=== PATIENT | male | born 1945 | race Caucasian/White ===

== ENCOUNTER 2017-04-02 17:49 | Inpatient (IN) ==
[2017-04-02] MEDS ORDERED: ONDANSETRON 4 MG/2 ML VIAL IV STA (18:10)
[2017-04-02] MEDS ORDERED: methylPREDNISolone SOD SUC 125 MG/2 ML VIAL IV STA (18:10)
[2017-04-02] MEDS ORDERED: FUROSEMIDE 100 MG/10 ML VIAL IV STA (18:10)
[2017-04-02] MEDS ORDERED: DOXYCYCLINE HYCLATE INJ 100 MG in SODIUM CHLORIDE 0.9% 100 ML IV STA (18:10)
[2017-04-02] MEDS ORDERED: ALBUTEROL/IPRATROPIUM 3 ML NEB RESP TX STA (18:10)
--- NOTE | 2017-04-02 18:15 | EKG Report ---
Stationary ECG Study [facility] ER Test Date: 04/02/2017 6:03:15 PM Pat Name: MARRY ELKINS Department: Room: Gender: M Wellness Program Coordinator: XIMENA Bethea : 1945 Requested by: Devon Jones Order Number: [id number] Reading MD: CELESTINA DICKSON Intervals [place] Rate: 93 P: 59 MS: 174 QRS: -49 QRSD: 96 T: 88 QT: 335 QTc: 386 Interpretive Statements SINUS RHYTHM LEFT ANTERIOR FASCICULAR BLOCK Possible ANTERIOR MYOCARDIAL INFARCTION, OF INDETERMINATE AGE INFERIOR MYOCARDIAL INFARCTION, PROBABLY OLD Electronically Signed On 04-03-17 08:52:45 CDT by CELESTINA DICKSON [email or web address]
--- NOTE | 2017-04-02 18:18 | Emergency Department Note ---
Arrival - Arrival Chief Complaint: Fever Stated Complaint: CHEST PAINS ED Nursing Triage Note: Pt c/o fever, cough, CP, SOB, chills, back pain, strong odor to his urine, and weakness since last . Mode of Arrival: Wheelchair Limitations: No Limitations Source: Patient Time Seen by Provider: 04/02/17 18:09 - History of Present Illness HPI Narrative: This 71-year-old white male presents with 5 days of temperatures spiking to 101 , body aches, weakness, cough with discolored sputum, shortness of breath with exertion, precordial chest pain, and increasing pedal edema. The patient denies a history of nausea, vomiting, diarrhea and in regards to chest pain, has had a negative cardiac workup per Dr. Dean. Of note, he has had multiple tick bites over the last several weeks the most recent being in the last week itself. Although he has weakness he denies any rheumalgias but does have what appears as a rash or bites of the lower extremities bilaterally. Currently he is uncomfortable but in no acute medical distress. Onset (ago): day(s) (This patient presents 5 days post onset of symptoms.) Allergies/Adverse Reactions: Allergies Allergy/AdvReac Type Severity Reaction Status Date / Time codeine Allergy Severe SHORTNESS Verified 03/30/15 06:20 OF BREATH ibuprofen Allergy Severe RASH Verified 03/30/15 06:20 BACTRIM DS Allergy Severe RASH Uncoded 03/30/15 06:20 Home Medications: Home Medications Medication Instructions Recorded Confirmed Type Omeprazole [Prilosec] 40 mg PO DAILY W/SUPPER 03/09/15 04/02/17 History glyBURIDE [Glyburide] 5 mg PO BID 03/09/15 04/02/17 History Aspirin EC Tab 81 mg PO BEDTIME 04/02/17 04/02/17 History Clopidogrel [Plavix] 75 mg PO DAILY W/SUPPER 04/02/17 04/02/17 History Insulin Aspart Prot/Asp 70/30 10 unit SUBCUT BEDTIME 04/02/17 04/02/17 History [NovoLOG Mix 70/30] Levothyroxine Tab [Synthroid Tab] 150 mcg PO DAILY@0700 04/02/17 04/02/17 History Lovastatin 10 mg PO BEDTIME 04/02/17 04/02/17 History NIFEdipine XL TAB [Procardia Xl] 30 mg PO BEDTIME 04/02/17 04/02/17 History Spironolactone [Aldactone] 25 mg PO QAM 04/02/17 04/02/17 History Review of System - Review of System 12 point system: reviewed and no additional remarkable complaints except as stated - Review of System Respiratory: Present: as per HPI Cardiovascular: Present: as per HPI Gastrointestinal: Present: as per HPI Musculoskeletal: Present: as per HPI Medical,Surgical,& Family Hx - Medical History Cardio: History of: CAD, Hypertension, [place] (X 4), Cardiovascular Problems (6 stents) Psychological: History of: Anxiety Disorders, Depression Neurology: No history of: Seizures HEENT: History of: Ear Problem (HARD OF HEARING), Eye Problem (CATARACTS) Endocrine: History of: Diabetes Mellitus (NIDDM), Thyroid Disorder (CANCER) Rheumatology: History of;: Rheumatoid Arthritis, Rheumatological Problems Respiratory: History of: COPD (ASBESTOES), Respiratory Problems Genitourinary: History of: Kidney Stones, Prostate Problems (CANCER SEED IMPLANTS) Gastrointestinal: History of: GERD, Hemorrhoids, Polyps, GI Problems (HIATAL HERNA) Musculoskeletal: History of: Back/Neck Problems, Musculoskeletal Problems Hematology: History of: Bleeding Problems (bloody urine) Other: History of: Cancer (PROSTATE THYROID) - Surgical History Cardiac Surgeries: Sugical HX of: Cardiac Catheterization Thoracic Surgeries: Surgical HX of;: Lithotripsy HEENT Surgeries: Surgical HX of: Eye Surgery (CATARACTS), Thyroid Surgery ( REMOVAL) Abdominal Surgeries: Surgical HX of: Abdominal Surgery, Colonoscopy, EGD, Hernia Repair (X3) Reproductive Surgeries: Surgical HX of;: Genitourinary Surgery, Prostate Surgery (SEED IMPLANTS) Orthopedic Surgeries: Surgical HX of;: Orthopedic Surgery (LEFT KNEE REPLACE), Total Knee Replacement (LEFT KNEE) - Family History Family History: Reports;: Family Cancer (DAD), Family Heart Disease (MOM) - Social History Smoking Status: Former smoker Exam Physical Examination: GENERAL: Elderly white male in no acute distress. HEENT: Normocephalic. No trauma. Moist mucous membranes. EOMI. PERRLA. Eyes slightly bloodshot ENT NML NECK: Supple. No adenopathy. CARDIAC: Regular. No murmurs. Heart rate 93 CHEST: Scattered expiratory ronchi. No respiratory distress. O2 sat 95% ABDOMEN: Soft. Nontender. Active bowel sounds. EXTREMITIES: No trauma. Normal ROM. No pedal edema. SKIN: No diaphoresis. Bites both ankles NEURO: Alert. Neuro intact no focal deficits. Vital Signs: Vital Signs Temperature 101.1 F H 04/02/17 18:57 Pulse Rate 101 H 04/02/17 18:57 Respiratory Rate 20 04/02/17 19:27 Blood Pressure 139/85 04/02/17 18:57 O2 Sat by Pulse Oximetry 100 04/02/17 18:30 Course - Reevaluation(s) Reevaluation #1: Discussed with patient the need for hospitalization for treatment of pneumonia. - Consultations Consultation #1: Discussed with hospitalist service who will admit for further evaluation treatment. Results - Labs CBC & BMP: 04/02/17 18:37 04/02/17 18:37 Labs: I reviewed laboratory results and noted the gross normality. - Impressions EKG: Sinus rhythm at 93 with normal DE interval and QRS duration. 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 Nonspecific ST changes observed but no acute injury pattern noted. - Diagnostic Findings Procedure: Chest x-ray: image reviewed by me, report reviewed by me (Left lower lobe pneumonia) Disposition Clinical Impression: Left lower lobe pneumonia, tick bites Case discussed with: patient, patient's family Disposition: Still a Patient Condition: Guarded Time of Disposition: 19:43
[2017-04-02 18:45] LABS: Basophils # 0.1 10*3/uL (0.0-0.2); Basophils % 0.5 % (0.0-0.8); Eosinophils # 0.2 10*3/uL (0.0-0.87); Eosinophils % 1.8 % (0.00-10.9); Hematocrit 42.4 VOL% (42.0-52.0); Immature Granulocytes % 0.3 %; Immature Granulocytes Absolute 0.03 #; Lymphocytes # 1.3 10*3/uL (1.4-4.0); Lymphocytes % 13.1 % (21.2-54.2); Mean Corpuscular Hemoglobin 30 PG (27-34); Mean Corpuscular Volume 90.6 FL (87-102); Mean Platelet Volume 10.1 FL (9.6-12.0); Monocytes # 1.2 10*3/uL (0.11-0.8); Monocytes % 11.9 % (1.7-12.7); Neutrophils % 72.4 % (38.7-73.9); Platelet Count 246 T/CUMM (130-400); Red Blood Count 4.68 MC/CUMM (3.8-5.5); Red Cell Distribution Width 14.2 % (9.3-17.3); White Blood Count 9.7 T/CUMM (4-12)
--- NOTE | 2017-04-02 18:46 | XRay Report ---
History: Shortness of breath Date: 04/02/2017 Study: Chest x-ray AP portable Comparison exam: February 17, 2016 The cardiac silhouette is not enlarged. The mediastinal contours are stable. The pulmonary vasculature is not engorged. There is some mild increased patchy density over the left lung base. The lungs are otherwise clear. There is no gross pleural effusion. Osseous structures are unchanged. Surgical clips overlie the thoracic inlet. Impression: Mild left basilar infiltrate suggestive of pneumonia. Otherwise unchanged PROCEDURE INTERPRETED AT [facility] DEPARTMENT OF RADIOLOGY Final Report Signed by: Dr. Salome Nichols
[2017-04-02 19:00] LABS: PT Patient Result 10.8 SECS; Partial Thromboplastin Time 28.7 SECS (0-40)
[2017-04-02] MEDS ORDERED: DOXYCYCLINE HYCLATE 100 MG VIAL ONE (19:04)
[2017-04-02] MEDS ORDERED: methylPREDNISolone SOD SUC 125 MG/2 ML VIAL ONE (19:04)
[2017-04-02] MEDS ORDERED: ONDANSETRON 4 MG/2 ML VIAL ONE (19:04)
[2017-04-02] MEDS ORDERED: FUROSEMIDE 20 MG/2 ML VIAL ONE (19:04)
[2017-04-02] MEDS ORDERED: FUROSEMIDE 40 MG/4 ML VIAL ONE (19:04)
[2017-04-02 19:23] LABS: Alanine Aminotransferase 40 U/L (16-61); Albumin 3.3 G/DL (3.4-5.0); Alkaline Phosphatase 62 U/L (45-117); Aspartate Amino Transferase 48 U/L (0-37); Blood Urea Nitrogen 16 MG/DL (7-18); Calcium 8.7 MG/DL (8.5-10.1); Glucose 159 MG/DL (74-106); Osmolality,Calculated 280.5 MOS/KG (273-304); Potassium 3.7 MMOL/L (3.5-5.1); Sodium 139 MMOL/L (136-145); Total Protein 7.8 G/DL (6.4-8.3); Troponin I Only < 0.015 NG/ML (0.00-0.045)
[2017-04-02] MEDS ORDERED: DEXTROSE 50% 25 GM/50 ML VIAL IV PRN ×2 (20:26)
[2017-04-02] MEDS ORDERED: ONDANSETRON 4 MG/2 ML VIAL IV PRN (20:26)
[2017-04-02] MEDS ORDERED: ZALEPLON 5 MG CAPSULE PO PRN (20:26)
[2017-04-02] MEDS ORDERED: GLUCAGON 1 MG VIAL IM PRN ×2 (20:26)
[2017-04-02] MEDS ORDERED: ACETAMINOPHEN 325 MG TABLET PO PRN (20:26)
[2017-04-02] MEDS ORDERED: ENOXAPARIN 30 MG/0.3 ML SYRINGE SUBCUT SCH (20:30)
--- NOTE | 2017-04-02 20:39 | Hospitalist History & Physical ---
Assessment and Plan (1) Pneumonia Status: Acute Assessment and plan: Gentleman with evidence of community-acquired pneumonia that is been present for several days. Associated with temperature spikes greater than 101. Broad- spectrum antibiotics with Zosyn and Levaquin. Sputum cultures. Gerard mejía Current Visit: Yes Qualifiers: Pneumonia type: due to unspecified organism (2) Diabetes 1.5, managed as type 2 Status: Chronic Assessment and plan: Continue with sliding scale insulin. Continue home medications. Current Visit: Yes (3) Fever Status: Acute Assessment and plan: Temperature spike due to pneumonia. Also has a history of tick bites has started on doxycycline. Pending blood cultures pending urine cultures. Broad-spectrum antibiotics. Current Visit: Yes (4) Obesity Status: Chronic Current Visit: Yes Qualifiers: Obesity type: due to excess calories (5) COPD (chronic obstructive pulmonary disease) Status: Chronic Current Visit: Yes Qualifiers: COPD type: COPD with acute lower respiratory infection Qualified Code(s): J44.0 - Chronic obstructive pulmonary disease with acute lower respiratory infection (6) Coronary artery disease Status: Chronic Assessment and plan: Patient has been followed by Dr. Dean. Has a history of 6 stents placed. Last stent was not quite a year ago. Last saw Dr. Dean within the last few weeks and had a cardiac workup at that time which was unremarkable. EKG done today shows no EKG changes or ST elevation. Current Visit: Yes Qualifiers: Coronary Disease-Associated Artery/Lesion type: [place] artery (7) Arthritis Status: Chronic Current Visit: Yes (8) History of thyroid cancer Status: Resolved Assessment and plan: The patient has had surgery Current Visit: Yes (9) History of prostate cancer Status: Acute Current Visit: Yes (10) Hernia of anterior abdominal wall Status: Chronic Assessment and plan: Patient has had surgery for hernia repair Current Visit: Yes History of Present Illness Chief complaint: Shortness of breath, fever, cough History of present illness: Mr. Espana is a 71 year old male with multiple medical problems to include coronary artery disease with stent placement diabetes, hypertension, nephrolithiasis, COPD, history of skin and thyroid cancer presented with a 3-4 day history of productive cough of bloody thick phlegm that continue to progress over the last several days. 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 Dean for fatigue and chest discomfort. His workup was unremarkable at that time. However today symptoms continued to worsen where patient states it felt like there was "kick in his chest" associated with fever, chills and fatigue. The fever of 102 is what prompted patient's family to bring him to the emergency room. The family honestly thought that these symptoms were due to his history of tick bite however his symptoms are much more intense today according to patient. While evaluated in the emergency room patient was found to have a left lower lobe pneumonia temperature greater than 101. His initial troponins were unremarkable and EKG showed no ST elevations. He has been sat 94 % on nasal cannula. Hemodynamically has been stable. He is empirically started on doxycycline. His main discomfort is midsternal discomfort and back pain. Broad-spectrum antibiotics. Sputum culture. Follow chest x-ray in a.m. Half-normal saline at 100 cc an hour. Nasal cannula. DuoNeb's. GI prophylaxis. DVT prophylaxis. Initial troponins unremarkable. Greene as needed pain. Solu-Medrol 60 mg IV every 8. Continue doxycycline 100 mg twice daily. Home Medications Medication Instructions Recorded Confirmed Type Omeprazole [Prilosec] 40 mg PO DAILY W/SUPPER 03/09/15 04/02/17 History glyBURIDE [Glyburide] 5 mg PO BID 03/09/15 04/02/17 History Aspirin EC Tab 81 mg PO BEDTIME 04/02/17 04/02/17 History Clopidogrel [Plavix] 75 mg PO DAILY W/SUPPER 04/02/17 04/02/17 History Insulin Aspart Prot/Asp 70/30 10 unit SUBCUT BEDTIME 04/02/17 04/02/17 History [NovoLOG Mix 70/30] Levothyroxine Tab [Synthroid Tab] 150 mcg PO DAILY@0700 04/02/17 04/02/17 History Lovastatin 10 mg PO BEDTIME 04/02/17 04/02/17 History NIFEdipine XL TAB [Procardia Xl] 30 mg PO BEDTIME 04/02/17 04/02/17 History Spironolactone [Aldactone] 25 mg PO QAM 04/02/17 04/02/17 History Allergies Allergy/AdvReac Type Severity Reaction Status Date / Time codeine Allergy Severe SHORTNESS Verified 03/30/15 06:20 OF BREATH ibuprofen Allergy Severe RASH Verified 03/30/15 06:20 BACTRIM DS Allergy Severe RASH Uncoded 03/30/15 06:20 Medical,Surgical,& Family Hx - Medical History Cardio: History of: CAD, Hypertension, [place] (X 4), Cardiovascular Problems (6 stents) Psychological: History of: Anxiety Disorders, Depression Neurology: No history of: Seizures HEENT: History of: Ear Problem (HARD OF HEARING), Eye Problem (CATARACTS) Endocrine: History of: Diabetes Mellitus (NIDDM), Thyroid Disorder (CANCER) Rheumatology: History of;: Rheumatoid Arthritis, Rheumatological Problems Respiratory: History of: COPD (ASBESTOES), Respiratory Problems Genitourinary: History of: Kidney Stones, Prostate Problems (CANCER SEED IMPLANTS) Gastrointestinal: History of: GERD, Hemorrhoids, Polyps, GI Problems (HIATAL HERNA) Musculoskeletal: History of: Back/Neck Problems, Musculoskeletal Problems Hematology: History of: Bleeding Problems (bloody urine) Other: History of: Cancer (PROSTATE THYROID) - Surgical History Cardiac Surgeries: Sugical HX of: Cardiac Catheterization Thoracic Surgeries: Surgical HX of;: Lithotripsy HEENT Surgeries: Surgical HX of: Eye Surgery (CATARACTS), Thyroid Surgery ( REMOVAL) Abdominal Surgeries: Surgical HX of: Abdominal Surgery, Colonoscopy, EGD, Hernia Repair (X3) Reproductive Surgeries: Surgical HX of;: Genitourinary Surgery, Prostate Surgery (SEED IMPLANTS) Orthopedic Surgeries: Surgical HX of;: Orthopedic Surgery (LEFT KNEE REPLACE), Total Knee Replacement (LEFT KNEE) - Family History Family History: Reports;: Family Cancer (DAD), Family Heart Disease (MOM) - Social History Smoking Status: Former smoker Exam - Constitutional Vitals: Period Temp Pulse Resp BP Sys/Fu Pulse Ox Last 24 Hr 101.0 F-101.1 F 95-101 18-20 139-139/85-85 95-100 Pleasant gentleman mild discomfort due to back pain. Also complains of epigastric pain. Patient appears his stated age. Cardiovascular is regular rate. Lungs Rales noted in the left lower lung and laterally Abdomen is soft obese positive bowel sounds Lower extremities no evidence of edema. Plan nerves II through XII grossly intact. General appearance: over weight - Head Head exam: Present: normal inspection - Eye Eye exam: Present: EOMI Pupils: Present: [place] - ENT ENT exam: Present: normal exam - Neck Neck exam: Present: normal inspection - Respiratory Respiratory exam: Present: rales (Noted over the left lung base anteriorly and laterally). Absent: chest wall tenderness, decreased breath sounds, stridor, wheezes - Cardiovascular Cardiovascular exam: Present: regular rate and rhythm - GI/Abdominal GI/Abdominal exam: Present: normal bowel sounds, distended (Soft no guarding or rebound healed surgical scar at the umbilicus) - Extremities Exam Extremities exam: Present: normal inspection, full ROM - Neurological Exam Neurological exam: Present: alert, oriented X3, CN II-XII intact - Psychiatric Psychiatric exam: Present: normal affect, normal mood - Skin Skin exam: Present: normal color, dry. Absent: cyanosis Results - Labs CBC & BMP: 04/02/17 18:37 04/02/17 18:37 - EKG EKG results: interpreted by MIHAELA, no acute changes - Diagnostic Findings Procedure: Chest x-ray: report reviewed by me (Evidence of left basilar infiltrate suggestive of pneumonia by report.)
[2017-04-02] MEDS ORDERED: LEVOFLOXACIN INJ 750 MG in PREMIX 1 EACH IV SCH (21:00)
[2017-04-02] MEDS ORDERED: INSULIN ASPART PROTAMINE/ASPART 70/30 100 UNIT/ML SUBCUT SCH (21:00)
[2017-04-02] MEDS: SODIUM CHLORIDE 0.45% 1,000 ML IV SCH (21:57)
[2017-04-02] MEDS: PIPERACILLIN/TAZOBACTAM 3,375 MG in SODIUM CHLORIDE 0.9% 100 ML IV SCH (22:00)
[2017-04-02] MEDS: glyBURIDE 5 MG TABLET PO SCH (22:01)
[2017-04-02] MEDS: DOXYCYCLINE HYCLATE 100 MG CAPSULE PO SCH (22:02)
[2017-04-02] MEDS: LOVASTATIN 20 MG TABLET PO SCH (22:02)
[2017-04-02] MEDS: ASPIRIN EC 81 MG TABLET PO SCH (22:03)
[2017-04-03] MEDS: ALBUTEROL/IPRATROPIUM 3 ML NEB RESP TX SCH ×4 (00:05→19:17)
[2017-04-03] MEDS: methylPREDNISolone SOD SUC 40 MG/1 ML VIAL IV SCH ×3 (03:59→18:25)
[2017-04-03 04:07] LABS: Troponin I Only < 0.015 NG/ML (0.00-0.045)
[2017-04-03] MEDS: PIPERACILLIN/TAZOBACTAM 3,375 MG in SODIUM CHLORIDE 0.9% 100 ML IV SCH ×4 (04:20→23:06)
[2017-04-03 05:24] LABS: Basophils % 0.1 % (0.0-0.8); Hematocrit 41.8 VOL% (42.0-52.0); Hemoglobin 13.7 GM/DL (14.0-18.0); Immature Granulocytes % 0.5 %; Immature Granulocytes Absolute 0.04 #; Lymphocytes # 0.6 10*3/uL (1.4-4.0); Lymphocytes % 7.7 % (21.2-54.2); Mean Corpuscular HGB Conc 32.8 GM/DL (32-36); Mean Corpuscular Hemoglobin 30 PG (27-34); Mean Corpuscular Volume 90.1 FL (87-102); Mean Platelet Volume 10.6 FL (9.6-12.0); Monocytes # 0.1 10*3/uL (0.11-0.8); Monocytes % 1.3 % (1.7-12.7); Neutrophils # 7.2 10*3/uL (1.4-7.4); Neutrophils % 90.4 % (38.7-73.9); Platelet Count 244 T/CUMM (130-400); Red Blood Count 4.64 MC/CUMM (3.8-5.5); Red Cell Distribution Width 14.1 % (9.3-17.3)
[2017-04-03 05:54] LABS: Calcium 8.5 MG/DL (8.5-10.1); Osmolality,Calculated 288.1 MOS/KG (273-304); Potassium 4.1 MMOL/L (3.5-5.1)
[2017-04-03 05:59] LABS: Troponin I Only < 0.015 NG/ML (0.00-0.045)
[2017-04-03 06:32] LABS: Band Neutrophils 4 % (0-10); Eosinophils 1 % (0-10); Hypochromasia Slight; Lymphocytes 2 % (20-55); Platelet Estimate Adequate; Segmented Neutrophils 89 % (50-85); Total Cells Counted 100
[2017-04-03] MEDS: SODIUM CHLORIDE 0.45% 1,000 ML IV SCH (06:54)
--- NOTE | 2017-04-03 07:57 | XRay Report ---
Exam: XR chest 2V Date: 04/03/2017 4:00 AM Indication: Shortness of breath Comparison: Technical: PA lateral Findings: Patchy infiltrate in the left base. The heart is at upper limits of normal. Mild scarring in the perihilar regions. Previous surgical changes in the left thyroid bed. Mediastinum is intact. Degenerative change present thoracic spine with anterolateral marginal osteophytes. Impression: 1. Patchy interstitial infiltrate left base with underlying component of fibrotic scarring and mild COPD change PROCEDURE INTERPRETED AT [facility] DEPARTMENT OF RADIOLOGY Final Report Signed by: Dr. Mickey Aragon
--- NOTE | 2017-04-03 08:01 | Ultrasound Report ---
Exam: US venous doppler LE BI Indication: Shortness of breath Date: 04/03/2017 4:00 AM Findings: Grayscale color flow duplex/Doppler imaging and spectral analysis waveform imaging was performed with real-time ultrasound with image stored and captured. The right common femoral, superficial femoral, popliteal saphenous veins are patent with normal augmentation and compression. There is no evidence of popliteal or Laguerre's cyst. Normal wave form analysis present. Normal color flow The left common femoral, superficial femoral, popliteal saphenous veins are patent with normal augmentation and compression. There is no evidence of popliteal or Laguerre's cyst. Normal wave form analysis present. Normal color flow Impression: 1. No DVT PROCEDURE INTERPRETED AT [facility] DEPARTMENT OF RADIOLOGY Final Report Signed by: Dr. Mickey Aragon
[2017-04-03] MEDS: PANTOPRAZOLE 40 MG TABLET PO SCH (09:34)
[2017-04-03] MEDS: INSULIN REGULAR 100 UNIT/ML SUBCUT SCH ×3 (09:34→20:34)
[2017-04-03] MEDS: glyBURIDE 5 MG TABLET PO SCH ×2 (09:34→19:30)
[2017-04-03] MEDS: LEVOTHYROXINE 150 MCG TABLET PO SCH (09:34)
[2017-04-03] MEDS: SPIRONOLACTONE 25 MG TABLET PO SCH (09:34)
[2017-04-03] MEDS: DOXYCYCLINE HYCLATE 100 MG CAPSULE PO SCH ×2 (09:34→20:35)
--- NOTE | 2017-04-03 12:33 | Hospitalist Progress Note ---
Assessment and Plan (1) Pneumonia Status: Acute Assessment and plan: Continue Zosyn, white count remains normal Current Visit: Yes Qualifiers: Pneumonia type: due to unspecified organism (2) Diabetes 1.5, managed as type 2 Status: Chronic Assessment and plan: Blood sugars running too high. Will get hemoglobin A1c and increase 7030-20 units twice a day. Continue insulin sliding scale Current Visit: Yes (3) COPD (chronic obstructive pulmonary disease) Status: Chronic Assessment and plan: Continue steroids, duo nebs every 6 hours and antibiotic Current Visit: Yes Qualifiers: COPD type: COPD with acute lower respiratory infection Qualified Code(s): J44.0 - Chronic obstructive pulmonary disease with acute lower respiratory infection (4) History of thyroid cancer Status: Resolved Current Visit: Yes (5) History of prostate cancer Status: Acute Current Visit: Yes (6) Tick bite Status: Acute Assessment and plan: will send off titer for lyme, erlichosis and RMSF, cont doxycycline for now Current Visit: Yes Hospitalist: Subjective Interval history: Patient is still feeling pretty rough today. He is also coughing up sputum. He feels better on the oxygen however. Patient has a history of thyroid cancer. Exam - Constitutional Vitals: Period Temp Pulse Resp BP Sys/Fu Pulse Ox Last 24 Hr 96.9 F-101.1 F 70-101 16-20 130-149/61-85 93-100 Exam: Heart Rate-[tachy] Lungs-[diminished and tight GI-[+bs soft, NT] Ext-[no edema] Neuro [Motor 5/5], [alert and oriented times 3] psych [normal mood and affect] General [no acute distress] Results - Labs CBC & BMP: 04/03/17 04:50 04/03/17 04:50 Lab Results: I have reviewed the past 24 hour labs - Diagnostic Findings Procedure: Chest x-ray: report reviewed by me (LLL infiltrate ), Ultrasound: report reviewed by me (no dvt) Quality Measures - Stroke Symptom Onset Unknown: No
[2017-04-03] MEDS ORDERED: NON-FORMULARY MEDICATION (Omeprazole [Prilosec] 40 MG) PO SCH (17:00)
[2017-04-03] MEDS: CLOPIDOGREL 75 MG TABLET PO SCH (17:26)
[2017-04-03] MEDS: INSULIN ASPART PROTAMINE/ASPART 70/30 100 UNIT/ML SUBCUT SCH (20:34)
[2017-04-03] MEDS: ENOXAPARIN 40 MG/0.4 ML SYRINGE SUBCUT SCH (20:35)
[2017-04-03] MEDS: LOVASTATIN 20 MG TABLET PO SCH (20:36)
[2017-04-03] MEDS: ASPIRIN EC 81 MG TABLET PO SCH (20:36)
[2017-04-04] MEDS: ALBUTEROL/IPRATROPIUM 3 ML NEB RESP TX SCH ×4 (00:03→19:10)
[2017-04-04] MEDS: methylPREDNISolone SOD SUC 40 MG/1 ML VIAL IV SCH ×2 (03:18→14:32)
[2017-04-04] MEDS: PIPERACILLIN/TAZOBACTAM 3,375 MG in SODIUM CHLORIDE 0.9% 100 ML IV SCH ×4 (03:19→23:00)
[2017-04-04] MEDS: SODIUM CHLORIDE 0.45% 1,000 ML IV SCH ×3 (06:25→16:18)
[2017-04-04] MEDS: LEVOTHYROXINE 150 MCG TABLET PO SCH (06:29)
[2017-04-04] MEDS: DOXYCYCLINE HYCLATE 100 MG CAPSULE PO SCH ×2 (08:40→20:31)
[2017-04-04] MEDS: PANTOPRAZOLE 40 MG TABLET PO SCH (08:40)
[2017-04-04] MEDS: SPIRONOLACTONE 25 MG TABLET PO SCH (08:40)
[2017-04-04] MEDS: INSULIN ASPART PROTAMINE/ASPART 70/30 100 UNIT/ML SUBCUT SCH ×2 (08:40→20:31)
[2017-04-04] MEDS: glyBURIDE 5 MG TABLET PO SCH ×2 (08:40→20:32)
[2017-04-04] MEDS: INSULIN REGULAR 100 UNIT/ML SUBCUT SCH ×2 (08:41→17:00)
--- NOTE | 2017-04-04 09:07 | Hospitalist Progress Note ---
Assessment and Plan (1) Pneumonia Status: Acute Assessment and plan: Continue Zosyn, duonebs and steroids Current Visit: Yes Qualifiers: Pneumonia type: due to unspecified organism (2) Diabetes 1.5, managed as type 2 Status: Chronic Assessment and plan: Blood sugars a little better today. Hemoglobin A1c is 7.9. Increase 70/30 to 27 units twice daily for better control. Current Visit: Yes (3) COPD (chronic obstructive pulmonary disease) Status: Chronic Assessment and plan: Continue steroids, duo nebs every 6 hours and antibiotic Current Visit: Yes Qualifiers: COPD type: COPD with acute lower respiratory infection Qualified Code(s): J44.0 - Chronic obstructive pulmonary disease with acute lower respiratory infection (4) History of thyroid cancer Status: Resolved Current Visit: Yes (5) History of prostate cancer Status: Acute Current Visit: Yes (6) Tick bite Status: Acute Assessment and plan: await lyme, erlichosis and RMSF, cont doxycycline for now Current Visit: Yes Hospitalist: Subjective Interval history: is at bedside. Patient has been under a lot of stress. He has got a lot of anxiety. I will treat him with as needed Ativan. He is a little constipated and will treat that with Dulcolax. He also did not sleep last night even though he had a sleeping pill he did not note that he could ask for it. We will schedule it at nighttime. Very sweet man. Exam - Constitutional Vitals: Period Temp Pulse Resp BP Sys/Fu Pulse Ox Last 24 Hr 96.9 F-97.6 F 75-104 18-20 130-148/75-88 91-98 Exam: Heart Rate-[RRR] Lungs-[diminished GI-[+bs soft, NT] Ext-[no edema] Neuro [Motor 5/5], [alert and oriented times 3] psych [anxious mood and affect] General [no acute distress] Results - Labs CBC & BMP: 04/03/17 04:50 04/03/17 04:50 Lab Results: I have reviewed the past 24 hour labs Labs: Sputum culture growing normal eva, blood cultures 2 negative no growth Quality Measures - Stroke Symptom Onset Unknown: No
[2017-04-04] MEDS: BISACODYL 5 MG TABLET PO SCH (09:44)
[2017-04-04] MEDS: LORazepam 0.5 MG TABLET PO PRN ×2 (09:44→20:32)
[2017-04-04] MEDS: CLOPIDOGREL 75 MG TABLET PO SCH (17:00)
[2017-04-04] MEDS: ZALEPLON 5 MG CAPSULE PO SCH (20:31)
[2017-04-04] MEDS: LOVASTATIN 20 MG TABLET PO SCH (20:31)
[2017-04-04] MEDS: ENOXAPARIN 40 MG/0.4 ML SYRINGE SUBCUT SCH (20:31)
[2017-04-04] MEDS: ASPIRIN EC 81 MG TABLET PO SCH (20:32)
[2017-04-05] MEDS: ALBUTEROL/IPRATROPIUM 3 ML NEB RESP TX SCH ×4 (00:40→19:17)
[2017-04-05] MEDS: SODIUM CHLORIDE 0.45% 1,000 ML IV SCH ×2 (03:00→10:52)
[2017-04-05] MEDS: methylPREDNISolone SOD SUC 40 MG/1 ML VIAL IV SCH ×2 (03:01→15:04)
[2017-04-05] MEDS: PIPERACILLIN/TAZOBACTAM 3,375 MG in SODIUM CHLORIDE 0.9% 100 ML IV SCH ×3 (03:51→20:41)
[2017-04-05] MEDS: LEVOTHYROXINE 150 MCG TABLET PO SCH (06:02)
[2017-04-05] MEDS: INSULIN REGULAR 100 UNIT/ML SUBCUT SCH ×2 (07:42→16:58)
[2017-04-05] MEDS: INSULIN ASPART PROTAMINE/ASPART 70/30 100 UNIT/ML SUBCUT SCH ×2 (08:41→17:57)
[2017-04-05] MEDS: BISACODYL 5 MG TABLET PO SCH (08:42)
[2017-04-05] MEDS: DOXYCYCLINE HYCLATE 100 MG CAPSULE PO SCH ×2 (08:43→20:40)
[2017-04-05] MEDS: glyBURIDE 5 MG TABLET PO SCH ×2 (08:43→20:40)
[2017-04-05] MEDS: SPIRONOLACTONE 25 MG TABLET PO SCH (08:43)
[2017-04-05] MEDS: PANTOPRAZOLE 40 MG TABLET PO SCH (08:43)
--- NOTE | 2017-04-05 14:34 | Hospitalist Progress Note ---
Assessment and Plan (1) Pneumonia Status: Acute Assessment and plan: Continue Zosyn, duonebs and steroids, repeat cxr in am Current Visit: Yes Qualifiers: Pneumonia type: due to unspecified organism (2) Diabetes 1.5, managed as type 2 Status: Chronic Assessment and plan: Increase 70/30 to 35 units twice daily for better control. Current Visit: Yes (3) COPD (chronic obstructive pulmonary disease) Status: Chronic Assessment and plan: improving, cont steroids, duo nebs and antibiotic Current Visit: Yes Qualifiers: COPD type: COPD with acute lower respiratory infection Qualified Code(s): J44.0 - Chronic obstructive pulmonary disease with acute lower respiratory infection (4) History of thyroid cancer Status: Resolved Current Visit: Yes (5) History of prostate cancer Status: Acute Current Visit: Yes (6) Tick bite Status: Acute Assessment and plan: lyme, erlichosis and RMSF pending, cont doxycycline for now Current Visit: Yes Hospitalist: Subjective Interval history: feeling better today. Will d/c oxygen and get him to move around more today, repeat cxr in am Exam - Constitutional Vitals: Period Temp Pulse Resp BP Sys/Fu Pulse Ox Last 24 Hr 97.4 F-98.1 F 75-93 18-20 132-145/68-83 86-98 Exam: Heart Rate-[RRR] Lungs-[clear GI-[+bs soft, NT] Ext-[no edema] Neuro [Motor 5/5], [alert and oriented times 3] psych [pleasant mood and affect] General [no acute distress] Results - Labs CBC & BMP: 04/03/17 04:50 04/03/17 04:50 Lab Results: I have reviewed the past 24 hour labs Labs: Blood cultures 2 negative no growth, sputum culture normal eva Quality Measures - Stroke Symptom Onset Unknown: No
[2017-04-05] MEDS: CLOPIDOGREL 75 MG TABLET PO SCH (16:05)
--- NOTE | 2017-04-05 17:07 | Sleep Medicine Consult ---
Assessment and Plan (1) Obstructive sleep apnea Status: Acute Assessment and plan: This patient has severe obstructive sleep apnea with severe O2 desaturation. We will place him on AutoPap with supplemental oxygen. We need to get his records from [facility] and [facility] and see what needs to be done to get him compliant and make sure that he stays compliant. We need to follow him closely in clinic to make sure he continues to work on achieving compliance and comfort with CPAP therapy. Current Visit: Yes (2) Diabetes 1.5, managed as type 2 Status: Chronic Assessment and plan: The prevalence rate for obstructive sleep apnea in patients with type 2 diabetes can be as high as 86%. Those patients with moderate to severe obstructive sleep apnea are at a greater risk for diabetic nephropathy and neuropathy. Compliance with CPAP therapy for these patients can lead to improvement in glycemic control and improvement in insulin sensitivity. Current Visit: Yes History of Present Illness Chief complaint: Obstructive sleep apnea History of present illness: Mr. Espana is a 71 year old male known to me from a prior history of obstructive sleep apnea. He was originally diagnosed in 2005 with an AHI of over 48 with O2 desaturation to his low is 72%. He was prescribed CPAP but was not treated. He was reevaluated in 2015 by split study and found to have severe obstructive sleep apnea with an AHI 55.1 with O2 desats to 63%. He had difficult control sleep apnea and has been on auto CPAP. He definitely was improved with CPAP therapy though he did not have complete control. He has had a difficult time with compliance. He had a greater than 90% usage right on his last clinic follow-up in August of last year but his compliance rate for over 4 hours was only 56%. His AHI on CPAP therapy with supplemental oxygen was 12.1. He actually required a re-titration study after that but never returned for that study. Home Medications Medication Instructions Recorded Confirmed Type Omeprazole [Prilosec] 40 mg PO DAILY W/SUPPER 03/09/15 04/02/17 History glyBURIDE [Glyburide] 5 mg PO BID 03/09/15 04/02/17 History Aspirin EC Tab 81 mg PO BEDTIME 04/02/17 04/02/17 History Clopidogrel [Plavix] 75 mg PO DAILY W/SUPPER 04/02/17 04/02/17 History Insulin Aspart Prot/Asp 70/30 10 unit SUBCUT BEDTIME 04/02/17 04/02/17 History [NovoLOG Mix 70/30] Levothyroxine Tab [Synthroid Tab] 150 mcg PO DAILY@0700 04/02/17 04/02/17 History Lovastatin 10 mg PO BEDTIME 04/02/17 04/02/17 History NIFEdipine XL TAB [Procardia Xl] 30 mg PO BEDTIME 04/02/17 04/02/17 History Spironolactone [Aldactone] 25 mg PO QAM 04/02/17 04/02/17 History Allergies Allergy/AdvReac Type Severity Reaction Status Date / Time codeine Allergy Severe SHORTNESS Verified 03/30/15 06:20 OF BREATH ibuprofen Allergy Severe RASH Verified 03/30/15 06:20 BACTRIM DS Allergy Severe RASH Uncoded 03/30/15 06:20 Review of systems: Unremarkable from sleep medicine standpoint. Exam (Pulmonay) H&P - Constitutional Vitals: Period Temp Pulse Resp BP Sys/Fu Pulse Ox Last 24 Hr 97.4 F-98.1 F 75-93 18-20 132-145/68-83 86-98 Exam: He is alert and responsive in no acute distress. Pupils equal round reactive to light and accommodation. Extraocular movements intact. Oropharynx with a class IV Mallampati exam. Neck supple without adenopathy or thyromegaly. No supraclavicular adenopathy is noted. Chest with symmetrical breath sounds without focal wheeze or rhonchi. Cardiac exam reveals a regular rhythm without murmur or gallop. Abdomen soft nontender without palpable hepatosplenomegaly or mass. Extremities are without clubbing, cyanosis, or edema. Neurologically , he is grossly intact. He moves all extremities with good strength and answers questions appropriately. Medical,Surgical,& Family Hx - Medical History Cardio: History of: CAD, Hypertension, OH (X 4), Cardiovascular Problems (6 stents) Psychological: History of: Anxiety Disorders, Depression Neurology: No history of: Seizures HEENT: History of: Ear Problem (HARD OF HEARING), Eye Problem (CATARACTS) Endocrine: History of: Diabetes Mellitus (NIDDM), Thyroid Disorder (CANCER) Rheumatology: History of;: Rheumatoid Arthritis, Rheumatological Problems Respiratory: History of: COPD (ASBESTOES), Respiratory Problems Genitourinary: History of: Kidney Stones, Prostate Problems (CANCER SEED IMPLANTS) Gastrointestinal: History of: GERD, Hemorrhoids, Polyps, GI Problems (HIATAL HERNA) Musculoskeletal: History of: Back/Neck Problems, Musculoskeletal Problems Hematology: History of: Bleeding Problems (bloody urine) Other: History of: Cancer (PROSTATE THYROID) - Surgical History Cardiac Surgeries: Sugical HX of: Cardiac Catheterization Thoracic Surgeries: Surgical HX of;: Lithotripsy HEENT Surgeries: Surgical HX of: Eye Surgery (CATARACTS), Thyroid Surgery ( REMOVAL) Abdominal Surgeries: Surgical HX of: Abdominal Surgery, Colonoscopy, EGD, Hernia Repair (X3) Reproductive Surgeries: Surgical HX of;: Genitourinary Surgery, Prostate Surgery (SEED IMPLANTS) Orthopedic Surgeries: Surgical HX of;: Orthopedic Surgery (LEFT KNEE REPLACE), Total Knee Replacement (LEFT KNEE) - Family History Family History: Reports;: Family Cancer (DAD), Family Heart Disease (MOM) - Social History Smoking Status: Former smoker Results - Labs CBC & BMP: 04/03/17 04:50 04/03/17 04:50 Lab Results: I have reviewed the past 24 hour labs Quality Measures - Stroke Symptom Onset Unknown: No
[2017-04-05] MEDS: LOVASTATIN 20 MG TABLET PO SCH (20:40)
[2017-04-05] MEDS: ZALEPLON 5 MG CAPSULE PO SCH (20:40)
[2017-04-05] MEDS: ASPIRIN EC 81 MG TABLET PO SCH (20:40)
[2017-04-05] MEDS: ENOXAPARIN 40 MG/0.4 ML SYRINGE SUBCUT SCH (20:41)
[2017-04-06] MEDS: ALBUTEROL/IPRATROPIUM 3 ML NEB RESP TX SCH ×2 (00:14→07:29)
[2017-04-06] MEDS: methylPREDNISolone SOD SUC 40 MG/1 ML VIAL IV SCH (04:18)
[2017-04-06] MEDS: PIPERACILLIN/TAZOBACTAM 3,375 MG in SODIUM CHLORIDE 0.9% 100 ML IV SCH ×2 (04:20→12:40)
[2017-04-06] MEDS: LEVOTHYROXINE 150 MCG TABLET PO SCH (06:27)
--- NOTE | 2017-04-06 07:50 | XRay Report ---
XR chest 2V Indication: Shortness of breath. Comparison: Chest x-ray 04/03/2017 Technique: PA and lateral chest x-ray was performed. Findings: Partial clearing of airspace disease within the lateral aspect of the mid to lower left lung is demonstrated. Minimal interstitial stranding remains present and scattered nodular airspace opacities remain present. Chest is otherwise stable and demonstrates no significant abnormality. Impression: 1. Interval partial clearing of the left lower lung. Continued follow-up is recommended to ensure resolution. 04/06/2017 7:47 AM PROCEDURE INTERPRETED AT [facility] DEPARTMENT OF RADIOLOGY Final Report Signed by: Dr. Feliciano Chapin
[2017-04-06] MEDS: INSULIN ASPART PROTAMINE/ASPART 70/30 100 UNIT/ML SUBCUT SCH (08:11)
[2017-04-06] MEDS: INSULIN REGULAR 100 UNIT/ML SUBCUT SCH (09:08)
[2017-04-06] MEDS: DOXYCYCLINE HYCLATE 100 MG CAPSULE PO SCH (09:12)
[2017-04-06] MEDS: glyBURIDE 5 MG TABLET PO SCH (09:13)
[2017-04-06] MEDS: SPIRONOLACTONE 25 MG TABLET PO SCH (09:13)
[2017-04-06] MEDS: BISACODYL 5 MG TABLET PO SCH (09:13)
[2017-04-06] MEDS: PANTOPRAZOLE 40 MG TABLET PO SCH (09:13)
--- NOTE | 2017-04-06 10:31 | Discharge Summary ---
<Gray Cummins - Last Filed: 04/06/17 11:07> Hospital Course - Hospital Course Hospital Course: Mr. Espana is a 71-year-old male with multiple medical problems which include coronary artery disease with stent placement, diabetes, hypertension, nephrolithiasis, COPD, history of skin and thyroid cancer who presented to the [place] ED on 04/02/2017 with complaints of a 3-4 day history of productive cough with bloody thick phlegm. He was admitted to the hospital medicine service with pneumonia. He was started on broad-spectrum antibiotics with Zosyn and Levaquin. Sputum cultures were collected. Duo nebs were ordered as well. Patient did have a fever on admission due to his pneumonia. Blood cultures were ordered. Both sputum and blood cultures were negative at 48 and 72 hours. Patient also reported a history of tick bite and was started on doxycycline. A titer for Lyme, ehrlichiosis and [place] spotted fever was sent off but are pending. Patient was continued on doxycycline. Patient's diabetes was managed with sliding scale insulin and 70/30 twice daily for better control. Hemoglobin A1c is 7.9. Sleep medicine was consulted for PATRICIA with decreasing O2 saturations. He was placed on AutoPap with supplemental oxygen with outpatient follow-up upon discharge. Patient unable to tolerate cpap machine and is not wearing his cpap at home. He has alot of anxiety but cannot take ativan and fall asleep without his cpap. I informed him and his . He has been started on lexapro in addition to ativan. At this time the patient has reached maximum benefit from hospitalization and is stable for discharge. He is scheduled to follow-up with Dr. Man in 1 week and his PCP, Dr. Choudhary, in 2 weeks. Patient will be discharged on augmentin and doxycycline. Specialty Discharge - Follow Up or Referrals Follow up with: Donna Man MD [Physician] - 1 Week (They will call you with appointment. if you do not hear from them today, call the office in am at [phone] to check with them when it will be.) Mahesh Choudhary MD [Primary Care Provider] - 2 Weeks Discharge Plan - Discharge Data Disposition: Home Health Service - Discharge Medications New Albuterol Sulfate [Proair HFA] 2 puff INH Q4H PRN #1 inhaler PRN Reason: Shortness Of Breath/Wheezing Amoxicillin/Clav Tab [Augmentin Tab] 875 mg PO BID #20 tablet Doxycycline Hyclate Cap [Vibramycin Cap] 100 mg PO BID #10 capsule Escitalopram [Lexapro] 10 mg PO DAILY #30 tablet LORazepam TAB [Ativan Tab] 0.25 mg PO TID PRN #20 tablet PRN Reason: Anxiety Continue glyBURIDE [Glyburide] 5 mg PO BID Omeprazole [Prilosec] 40 mg PO DAILY W/SUPPER Levothyroxine Tab [Synthroid Tab] 150 mcg PO DAILY@0700 Spironolactone [Aldactone] 25 mg PO QAM Lovastatin 10 mg PO BEDTIME Clopidogrel [Plavix] 75 mg PO DAILY W/SUPPER Aspirin EC Tab 81 mg PO BEDTIME NIFEdipine XL TAB [Procardia Xl] 30 mg PO BEDTIME Changed Insulin Aspart Prot/Asp 70/30 [NovoLOG Mix 70/30] 35 unit SUBCUT BID #100 ml - Follow Up or Referral Follow Up: Donna Man MD [Physician] - 1 Week (They will call you with appointment. if you do not hear from them today, call the office in am at [phone] to check with them when it will be.) Mahesh Choudhary MD [Primary Care Provider] - 2 Weeks - Forms/Instructions Instructions: Doxycycline (By mouth), Lorazepam (By mouth), Amoxicillin (By mouth), Escitalopram (By mouth), Sleep Apnea Syndrome (GEN) Exam - Constitutional Vitals: Period Temp Pulse Resp BP Sys/Fu Pulse Ox Last 24 Hr 97.5 F-97.8 F 71-89 16-22 132-168/68-94 91-98 Discharge Results Procedures and tests throughout hospitalization: Pending Orders 04/02/17 18:37 Lyme Disease Serology, S Stat Rickettsial Disease Panel Stat 04/02/17 19:12 Blood Culture Stat 04/03/17 04:50 Ehrlichia chaff Ab, IgG,IgM Stat Spotted Fever Group IgG/IgM Stat Labs on day of discharge: Labs from last 24 hours 04/05/17 04/05/17 04/05/17 20:32 16:15 11:35 POC Glucose 180 H 276 H 273 H 04/05/17 07:17 POC Glucose 181 H Preliminary micro results at discharge 04/02/17 19:12 Blood Culture - Preliminary Blood No growth at 3 days 04/02/17 19:04 Blood Culture - Preliminary Blood No growth at 3 days DS: Provider Date of admission: 04/02/17 20:27 Primary care physician: Mahesh Choudhary MD Attending physician on admission: Rubén Monroy MD Consults: 04/05/17 09:32 Consult to Physical Therapy [CONS] Routine Reason for Physical Therapy: Evaluate and Treat 04/05/17 14:33 Consult to Case Mgmt/Social Srvs [CONS] Routine Reason for Case Mgmt/Social Srvs: Home Health Consult Comment: nurse 04/05/17 15:31 Consult to Sleep Center [CONS] Routine Reason for Sleep Center: Sleep Center Physician Consult Comment: stop breathing and agitated during sleep Discharging clinician: Gray ACEVEDO Expected date of discharge: 04/06/17 <Clotilde Louise - Last Filed: 04/06/17 12:24> Hospital Course - Time spent with patient Time with patient DS: Greater than 30 minutes (45 min) Diagnosis - Discharge Diagnosis (1) Pneumonia Status: Acute (2) Diabetes 1.5, managed as type 2 Status: Chronic (3) COPD (chronic obstructive pulmonary disease) Status: Chronic (4) History of thyroid cancer Status: Resolved (5) History of prostate cancer Status: Acute (6) Tick bite Status: Acute Discharge Plan - Discharge Data Condition at Discharge: Stable Discharge Diet: diabetic diet Activity: resume usual activities as tolerated Hygiene: no restrictions Weight Bearing at Discharge: full weight bearing Driving: no restrictions Contact your physician if you experience:: fever over 101 - Forms/Instructions Additional Discharge Instructions: cannot take ativan at night without being on bipap Exam - Constitutional General appearance: normal weight, no acute distress - Respiratory Respiratory exam: Present: clear to auscultation bilaterally. Absent: rhonchi, wheezes - Cardiovascular Cardiovascular exam: Present: regular rate and rhythm. Absent: systolic murmur - GI/Abdominal GI/Abdominal exam: Present: normal bowel sounds, soft. Absent: tenderness - Extremities Exam Extremities exam: Present: normal inspection, normal capillary refill - Neurological Exam Neurological exam: Present: alert, oriented X3 - Psychiatric Psychiatric exam: Present: normal affect, normal mood
[2017-04-06 11:25] VITALS: BP 146/81
[2017-04-08 22:13] LABS: E.chaffeensis Ab IgM <1:20 (<1:20)
[2017-04-12 16:33] LABS: Q Fever IgM Phase I Screen NEGATIVE (NEGATIVE); Q Fever IgM Phase II Screen NEGATIVE (NEGATIVE)
== END 2017-04-06 12:36 | disposition home health service (06) | DRG 190 ==
LOC: N.ED 17:49 → N.EDINP 20:26 → SUATTDRO 20:27 → N.5E 21:13
PROVIDERS: ADMIT Family Medicine; ATTEND Internal Medicine

== ENCOUNTER 2020-05-12 14:29 | Inpatient (IN) ==
[2020-05-12] MEDS ORDERED: SODIUM CHLORIDE 0.9% 1,000 ML IV STA (15:23)
[2020-05-12 15:45] LABS: Basophils % 0.1 % (0.0-0.8); Hematocrit 44.6 VOL% (42.0-52.0); Hemoglobin 14.2 GM/DL (14.0-18.0); Immature Granulocytes % 0.6 %; Immature Granulocytes Absolute 0.05 #; Lymphocytes # 0.6 10*3/uL (1.4-4.0); Lymphocytes % 7.3 % (21.2-54.2); Mean Corpuscular HGB Conc 31.8 GM/DL (32-36); Mean Corpuscular Volume 92.9 FL (87-102); Mean Platelet Volume 10.5 FL (9.6-12.0); Monocytes % 3.9 % (1.7-12.7); Neutrophils % 88.1 % (38.7-73.9); Platelet Count 193 T/CUMM (130-400); Red Cell Distribution Width 14.3 % (9.3-17.3); White Blood Count 8.7 T/CUMM (4-12)
[2020-05-12 16:10] LABS: Albumin 2.7 G/DL (3.4-5.0); Bilirubin,Total 0.6 MG/DL (0.2-1.0); Calcium 8.8 MG/DL (8.5-10.1); Osmolality,Calculated 273.7 MOS/KG (273-304); Total Protein 8.2 G/DL (6.4-8.3)
[2020-05-12] MEDS ORDERED: ACETAMINOPHEN 500 MG TABLET PO STA (16:24)
[2020-05-12] MEDS ORDERED: ACETAMINOPHEN 500 MG TABLET ONE (16:25)
[2020-05-12] MEDS ORDERED: ONDANSETRON 4 MG/2 ML VIAL IV PRN (16:45)
[2020-05-12] MEDS ORDERED: DEXTROSE 50% 25 GM/50 ML VIAL IV PRN ×2 (16:45)
[2020-05-12] MEDS ORDERED: GLUCAGON 1 MG VIAL IM PRN (16:45)
[2020-05-12] MEDS ORDERED: NITROGLYCERIN SL 0.4 MG TABLET SL PRN (16:50)
[2020-05-12] MEDS ORDERED: DEXTROSE 50% 25 GM/50 ML SYRINGE IV ONE (17:06)
[2020-05-12] MEDS ORDERED: DEXTROSE 50% 25 GM/50 ML VIAL IV STA (17:11)
[2020-05-12] MEDS: cefTRIAXone 1,000 MG in SYRINGE 1 EACH IV SCH (19:55)
[2020-05-12] MEDS: AZITHROMYCIN INJ 500 MG in SODIUM CHLORIDE 0.9% 250 ML IV SCH (20:00)
[2020-05-12 20:18] LABS: Apearance,Urine CLEAR (Clear); Bacteria,Urine Moderate /HPF (Few); Bilirubin,Urine Negative (Negative); Blood, Urine Negative (Negative); Glucose,Urine (UA) Negative (Negative); Ketones,Urine Negative (Negative); Mucus,Urine Few /LPF (Occasional); Nitrite,Urine Negative (Negative); Protein,Urine 100 MG/DL; RBC,Urine 2 /HPF (0-4); Urine Color Amber (Yellow); Urine Specific Gravity 1.024 (1.001-1.035); WBC,Urine 1 /HPF (0-6)
[2020-05-12] MEDS: INSULIN LISPRO 100 UNIT/ML SUBCUT SCH (21:03)
[2020-05-12] MEDS: SIMVASTATIN 10 MG TABLET PO SCH (22:00)
[2020-05-13 04:23] LABS: Basophils % 0.3 % (0.0-0.8); Hematocrit 43.9 VOL% (42.0-52.0); Hemoglobin 13.9 GM/DL (14.0-18.0); Immature Granulocytes Absolute 0.08 #; Lymphocytes # 0.9 10*3/uL (1.4-4.0); Lymphocytes % 10.9 % (21.2-54.2); Mean Corpuscular HGB Conc 31.7 GM/DL (32-36); Mean Corpuscular Volume 94.2 FL (87-102); Mean Platelet Volume 10.5 FL (9.6-12.0); Monocytes % 4.5 % (1.7-12.7); Neutrophils % 83.3 % (38.7-73.9); Platelet Count 178 T/CUMM (130-400); Red Blood Count 4.66 MC/CUMM (3.8-5.5); Red Cell Distribution Width 14.2 % (9.3-17.3)
[2020-05-13 05:06] LABS: Ferritin 294.1 ng/ml (26-388)
[2020-05-13 05:09] LABS: Albumin 2.4 G/DL (3.4-5.0); Bilirubin,Total 0.6 MG/DL (0.2-1.0); Calcium 8.6 MG/DL (8.5-10.1); Osmolality,Calculated 274.7 MOS/KG (273-304); Risk Ratio 2.42; Thyroid Stimulating Hormone 0.59 uIU/ml (0.358-3.74); Total Protein 7.4 G/DL (6.4-8.3)
[2020-05-13] MEDS: LEVOTHYROXINE 150 MCG TABLET PO SCH (07:09)
[2020-05-13] MEDS: INSULIN LISPRO 100 UNIT/ML SUBCUT SCH ×5 (08:44→21:31)
[2020-05-13] MEDS: DEXAMETHASONE 4 MG/1 ML VIAL IV SCH (08:44)
[2020-05-13] MEDS: ACETAMINOPHEN 325 MG TABLET PO PRN (08:45)
[2020-05-13] MEDS ORDERED: PANTOPRAZOLE 40 MG TABLET PO SCH (09:00)
[2020-05-13] MEDS: CLOPIDOGREL 75 MG TABLET PO SCH (11:28)
[2020-05-13] MEDS: LOSARTAN 25 MG TABLET PO SCH (11:28)
[2020-05-13] MEDS: cefTRIAXone 1,000 MG in SYRINGE 1 EACH IV SCH (18:09)
[2020-05-13] MEDS: AZITHROMYCIN INJ 500 MG in SODIUM CHLORIDE 0.9% 250 ML IV SCH (21:30)
[2020-05-13] MEDS: SIMVASTATIN 10 MG TABLET PO SCH (21:30)
[2020-05-14] MEDS: LEVOTHYROXINE 150 MCG TABLET PO SCH (06:05)
[2020-05-14 06:57] LABS: Basophils % 0.1 % (0.0-0.8); Immature Granulocytes % 0.7 %; Immature Granulocytes Absolute 0.07 #; Lymphocytes # 0.7 10*3/uL (1.4-4.0); Lymphocytes % 6.5 % (21.2-54.2); Mean Corpuscular HGB Conc 32.6 GM/DL (32-36); Mean Corpuscular Volume 92.3 FL (87-102); Mean Platelet Volume 10.9 FL (9.6-12.0); Monocytes % 4.7 % (1.7-12.7); Platelet Count 226 T/CUMM (130-400); Red Blood Count 4.66 MC/CUMM (3.8-5.5); White Blood Count 10.6 T/CUMM (4-12)
[2020-05-14 07:14] LABS: Ferritin 381.5 ng/ml (26-388)
[2020-05-14 07:24] LABS: Albumin 2.5 G/DL (3.4-5.0); Bilirubin,Total 1.2 MG/DL (0.2-1.0); Calcium 8.8 MG/DL (8.5-10.1); Osmolality,Calculated 288.4 MOS/KG (273-304)
[2020-05-14] MEDS: DEXAMETHASONE 4 MG/1 ML VIAL IV SCH (08:17)
[2020-05-14] MEDS: AZITHROMYCIN 250 MG TABLET PO SCH (08:17)
[2020-05-14] MEDS: INSULIN LISPRO 100 UNIT/ML SUBCUT SCH ×4 (08:17→21:15)
[2020-05-14] MEDS: ACETAMINOPHEN 325 MG TABLET PO PRN (08:47)
[2020-05-14] MEDS ORDERED: FUROSEMIDE 40 MG/4 ML VIAL IV ONE (10:55)
[2020-05-14] MEDS ORDERED: ENOXAPARIN 100 MG/ML SYRINGE SUBCUT SCH (11:00)
[2020-05-14] MEDS ORDERED: SUCCINYLCHOLINE 200 MG/10 ML VIAL ONE (11:07)
[2020-05-14] MEDS ORDERED: ETOMIDATE 20 MG/10 ML VIAL IV ONE ×2 (11:07→11:15)
[2020-05-14] MEDS ORDERED: NOREPINEPHRINE 8 MG in SODIUM CHLORIDE 0.9% 242 ML IV PRN ×2 (11:13→11:36)
[2020-05-14] MEDS ORDERED: NOREPINEPHRINE 4 MG/4 ML VIAL IV ONE (11:14)
[2020-05-14] MEDS ORDERED: SUCCINYLCHOLINE 200 MG/10 ML VIAL IV ONE ×2 (11:15→11:25)
[2020-05-14] MEDS ORDERED: VECURONIUM 10 MG VIAL IV ONE ×2 (11:34→11:36)
[2020-05-14] MEDS ORDERED: fentaNYL 100 MCG/2 ML VIAL ONE (11:37)
[2020-05-14] MEDS ORDERED: fentaNYL 100 MCG/2 ML VIAL IV ONE (11:40)
[2020-05-14 11:58] LABS: ABG Base Excess -2.9 MMOL/L (-2.5-2.5); ABG PH 7.371 (7.35-7.45); ABG TCO2 19.1 MMOL/L (23-27)
[2020-05-14 12:19] LABS: Apearance,Urine CLEAR (Clear); Bacteria,Urine Occasional /HPF (Few); Bilirubin,Urine Negative (Negative); Blood, Urine Moderate mg/dL (Negative); Glucose,Urine (UA) Negative (Negative); Hyaline Casts,Urine 3 /LPF (0-3); Ketones,Urine Negative (Negative); Mucus,Urine Few /LPF (Occasional); Nitrite,Urine Negative (Negative); Protein,Urine 100 MG/DL; RBC,Urine 7 /HPF (0-4); Squamous Epithelial Cell,Urine Occasional /HPF (0-10); Urine Color Yellow (Yellow); Urine Specific Gravity 1.018 (1.001-1.035); Urine Urobilinogen < 2.0 EU/DL (0.2-1.0); WBC,Urine 2 /HPF (0-6)
[2020-05-14] MEDS: FAMOTIDINE 20 MG/2 ML VIAL IV SCH ×2 (13:36→23:08)
[2020-05-14] MEDS: LOSARTAN 25 MG TABLET PO SCH (13:36)
[2020-05-14] MEDS: CLOPIDOGREL 75 MG TABLET PO SCH (13:37)
[2020-05-14] MEDS: VANCOMYCIN INJ 1,500 MG in SODIUM CHLORIDE 0.9% 500 ML IV SCH ×2 (13:37→23:08)
[2020-05-14] MEDS: fentaNYL INJ 1,250 MCG in SODIUM CHLORIDE 0.9% 225 ML IV PRN ×2 (14:25→20:31)
[2020-05-14] MEDS: MIDAZOLAM 100 MG in SODIUM CHLORIDE 0.9% 80 ML IV PRN (14:25)
[2020-05-14] MEDS: SODIUM CHLORIDE 0.9% 1,000 ML IV SCH (18:30)
[2020-05-14] MEDS: cefTRIAXone 1,000 MG in SYRINGE 1 EACH IV SCH (21:14)
[2020-05-14] MEDS: SIMVASTATIN 10 MG TABLET PO SCH (21:15)
[2020-05-14] MEDS: ENOXAPARIN 60 MG/0.6 ML SYRINGE SUBCUT SCH (23:18)
[2020-05-15 00:28] LABS: Basophils % 0.1 % (0.0-0.8); Hematocrit 40.4 VOL% (42.0-52.0); Immature Granulocytes % 1.2 %; Immature Granulocytes Absolute 0.14 #; Lymphocytes # 0.8 10*3/uL (1.4-4.0); Lymphocytes % 6.9 % (21.2-54.2); Mean Corpuscular HGB Conc 32.2 GM/DL (32-36); Mean Corpuscular Volume 93.1 FL (87-102); Mean Platelet Volume 10.6 FL (9.6-12.0); Monocytes % 4.6 % (1.7-12.7); Neutrophils % 87.2 % (38.7-73.9); Platelet Count 246 T/CUMM (130-400); Red Blood Count 4.34 MC/CUMM (3.8-5.5); Red Cell Distribution Width 14.1 % (9.3-17.3); White Blood Count 12.1 T/CUMM (4-12)
[2020-05-15 01:02] LABS: Calcium 8.8 MG/DL (8.5-10.1); Osmolality,Calculated 294.5 MOS/KG (273-304)
[2020-05-15 01:06] LABS: Albumin 2.2 G/DL (3.4-5.0); Bilirubin,Total 1.6 MG/DL (0.2-1.0); Calcium 8.8 MG/DL (8.5-10.1); Osmolality,Calculated 293.7 MOS/KG (273-304); Total Protein 7.3 G/DL (6.4-8.3)
[2020-05-15 01:07] LABS: Ferritin 441.1 ng/ml (26-388)
[2020-05-15 03:13] LABS: ABG Base Excess -2.2 MMOL/L (-2.5-2.5); ABG HCO3 22.6 MMOL/L (20-26); ABG Oxygen Saturation 99.1 % (95-100); ABG PCO2 37.7 MM HG (35-48); ABG PH 7.383 (7.35-7.45); ABG TCO2 19.6 MMOL/L (23-27); Allen Test Positive; Pt O2 Delivery Device Ventilator
[2020-05-15] MEDS: fentaNYL INJ 1,250 MCG in SODIUM CHLORIDE 0.9% 225 ML IV PRN ×3 (03:34→18:35)
[2020-05-15] MEDS: LEVOTHYROXINE 150 MCG TABLET PO SCH (06:03)
[2020-05-15] MEDS: INSULIN LISPRO 100 UNIT/ML SUBCUT SCH ×3 (08:00→18:15)
[2020-05-15] MEDS: DEXAMETHASONE 4 MG/1 ML VIAL IV SCH (08:50)
[2020-05-15] MEDS: AZITHROMYCIN 250 MG TABLET PO SCH (08:50)
[2020-05-15] MEDS: MIDAZOLAM 100 MG in SODIUM CHLORIDE 0.9% 80 ML IV PRN (09:37)
[2020-05-15] MEDS: SODIUM CHLORIDE 0.9% 1,000 ML IV SCH (10:49)
[2020-05-15] MEDS: FAMOTIDINE 20 MG/2 ML VIAL IV SCH (11:00)
[2020-05-15] MEDS: ENOXAPARIN 60 MG/0.6 ML SYRINGE SUBCUT SCH (11:00)
[2020-05-15] MEDS: CLOPIDOGREL 75 MG TABLET PO SCH (11:00)
[2020-05-15] MEDS ORDERED: SODIUM CHLORIDE 0.9% 500 ML IV ONE (13:35)
[2020-05-15] MEDS: ZINC GLUCONATE 50 MG TABLET PER TUBE SCH (15:06)
[2020-05-15] MEDS: ASCORBIC ACID 500 MG TABLET PER TUBE SCH (15:06)
[2020-05-15] MEDS: cefTRIAXone 1,000 MG in SYRINGE 1 EACH IV SCH (20:45)
[2020-05-15] MEDS: SIMVASTATIN 10 MG TABLET PO SCH (20:46)
[2020-05-16] MEDS: FAMOTIDINE 20 MG/2 ML VIAL IV SCH ×2 (01:02→13:25)
[2020-05-16] MEDS: ENOXAPARIN 60 MG/0.6 ML SYRINGE SUBCUT SCH ×2 (01:02→14:20)
[2020-05-16] MEDS: INSULIN LISPRO 100 UNIT/ML SUBCUT SCH ×4 (01:59→18:40)
[2020-05-16 03:49] LABS: Basophils % 0.1 % (0.0-0.8); Hematocrit 37.2 VOL% (42.0-52.0); Hemoglobin 11.5 GM/DL (14.0-18.0); Immature Granulocytes % 1.1 %; Immature Granulocytes Absolute 0.12 #; Lymphocytes # 0.5 10*3/uL (1.4-4.0); Mean Corpuscular HGB Conc 30.9 GM/DL (32-36); Mean Corpuscular Volume 95.9 FL (87-102); Mean Platelet Volume 11.1 FL (9.6-12.0); Monocytes % 4.5 % (1.7-12.7); Neutrophils % 89.3 % (38.7-73.9); Platelet Count 255 T/CUMM (130-400); Red Blood Count 3.88 MC/CUMM (3.8-5.5); Red Cell Distribution Width 14.6 % (9.3-17.3); White Blood Count 10.7 T/CUMM (4-12)
[2020-05-16 04:16] LABS: Calcium 8.2 MG/DL (8.5-10.1); Osmolality,Calculated 308.1 MOS/KG (273-304)
[2020-05-16] MEDS: SODIUM CHLORIDE 0.9% 1,000 ML IV SCH ×2 (04:55→18:40)
[2020-05-16 05:00] LABS: ABG Base Excess -3.4 MMOL/L (-2.5-2.5); ABG HCO3 21.6 MMOL/L (20-26); ABG Oxygen Saturation 99.5 % (95-100); ABG PCO2 40.3 MM HG (35-48); ABG PH 7.346 (7.35-7.45); ABG TCO2 19.6 MMOL/L (23-27); Allen Test Positive; Pt O2 Delivery Device Ventilator
[2020-05-16] MEDS: LEVOTHYROXINE 150 MCG TABLET PO SCH (05:40)
[2020-05-16] MEDS: fentaNYL INJ 1,250 MCG in SODIUM CHLORIDE 0.9% 225 ML IV PRN ×2 (06:28→19:51)
[2020-05-16] MEDS: ASCORBIC ACID 500 MG TABLET PER TUBE SCH (08:19)
[2020-05-16] MEDS: AZITHROMYCIN 250 MG TABLET PO SCH (08:20)
[2020-05-16] MEDS: DEXAMETHASONE 4 MG/1 ML VIAL IV SCH (08:20)
[2020-05-16] MEDS: ZINC GLUCONATE 50 MG TABLET PER TUBE SCH (08:20)
[2020-05-16] MEDS ORDERED: VANCOMYCIN INJ 1,500 MG in SODIUM CHLORIDE 0.9% 500 ML IV SCH (12:00)
[2020-05-16] MEDS: CLOPIDOGREL 75 MG TABLET PO SCH (14:20)
[2020-05-16] MEDS: MIDAZOLAM 100 MG in SODIUM CHLORIDE 0.9% 80 ML IV PRN (19:51)
[2020-05-16] MEDS: SIMVASTATIN 10 MG TABLET PO SCH (20:47)
[2020-05-16] MEDS: cefTRIAXone 1,000 MG in SYRINGE 1 EACH IV SCH (20:47)
[2020-05-17] MEDS: INSULIN LISPRO 100 UNIT/ML SUBCUT SCH ×4 (01:01→16:55)
[2020-05-17] MEDS: ENOXAPARIN 60 MG/0.6 ML SYRINGE SUBCUT SCH ×2 (01:11→12:23)
[2020-05-17] MEDS: FAMOTIDINE 20 MG/2 ML VIAL IV SCH ×2 (01:13→12:23)
[2020-05-17 03:29] LABS: Basophils % 0.1 % (0.0-0.8); Hemoglobin 11.7 GM/DL (14.0-18.0); Immature Granulocytes % 1.5 %; Immature Granulocytes Absolute 0.17 #; Lymphocytes # 0.6 10*3/uL (1.4-4.0); Lymphocytes % 5.3 % (21.2-54.2); Mean Corpuscular HGB Conc 31.6 GM/DL (32-36); Mean Corpuscular Volume 96.4 FL (87-102); Monocytes % 4.6 % (1.7-12.7); Neutrophils % 88.5 % (38.7-73.9); Platelet Count 293 T/CUMM (130-400); Red Blood Count 3.84 MC/CUMM (3.8-5.5); Red Cell Distribution Width 14.6 % (9.3-17.3); White Blood Count 11.7 T/CUMM (4-12)
[2020-05-17 04:33] LABS: Albumin 1.7 G/DL (3.4-5.0); Bilirubin,Total 0.5 MG/DL (0.2-1.0); Calcium 8.2 MG/DL (8.5-10.1); Osmolality,Calculated 313.6 MOS/KG (273-304); Total Protein 6.6 G/DL (6.4-8.3)
[2020-05-17 05:02] LABS: ABG Base Excess -2.6 MMOL/L (-2.5-2.5); ABG HCO3 22.3 MMOL/L (20-26); ABG Oxygen Saturation 99.1 % (95-100); ABG PCO2 38.3 MM HG (35-48); ABG PH 7.374 (7.35-7.45); ABG TCO2 19.8 MMOL/L (23-27); Allen Test Positive; Pt O2 Delivery Device Ventilator
[2020-05-17] MEDS: SODIUM CHLORIDE 0.9% 1,000 ML IV SCH (05:47)
[2020-05-17] MEDS: LEVOTHYROXINE 150 MCG TABLET PO SCH (06:17)
[2020-05-17] MEDS: AZITHROMYCIN 250 MG TABLET PO SCH (08:10)
[2020-05-17] MEDS: DEXAMETHASONE 4 MG/1 ML VIAL IV SCH (08:10)
[2020-05-17] MEDS: ZINC GLUCONATE 50 MG TABLET PER TUBE SCH (08:10)
[2020-05-17] MEDS: fentaNYL INJ 1,250 MCG in SODIUM CHLORIDE 0.9% 225 ML IV PRN ×2 (08:23→21:40)
[2020-05-17] MEDS: CLOPIDOGREL 75 MG TABLET PO SCH (12:23)
[2020-05-17] MEDS: ASCORBIC ACID 500 MG TABLET PER TUBE SCH (12:23)
[2020-05-17] MEDS: cefTRIAXone 1,000 MG in SYRINGE 1 EACH IV SCH (21:11)
[2020-05-17] MEDS: INSULIN GLARGINE 100 UNIT/ML SUBCUT SCH (21:15)
[2020-05-17] MEDS: SIMVASTATIN 10 MG TABLET PO SCH (21:22)
[2020-05-18] MEDS: FAMOTIDINE 20 MG/2 ML VIAL IV SCH ×2 (00:31→12:18)
[2020-05-18] MEDS: ENOXAPARIN 60 MG/0.6 ML SYRINGE SUBCUT SCH ×2 (00:35→12:17)
[2020-05-18] MEDS: INSULIN LISPRO 100 UNIT/ML SUBCUT SCH ×4 (00:35→18:41)
[2020-05-18] MEDS: ACETAMINOPHEN 325 MG TABLET PO PRN (00:36)
[2020-05-18 04:48] LABS: ABG Base Excess -0.5 MMOL/L (-2.5-2.5); ABG HCO3 23.6 MMOL/L (20-26); ABG Oxygen Saturation 98.6 % (95-100); ABG PCO2 37.2 MM HG (35-48); ABG PH 7.421 (7.35-7.45); ABG PO2 129.8 MM HG (80-95); ABG TCO2 24.8 MMOL/L (23-27); Allen Test Positive; Pt O2 Delivery Device Ventilator
[2020-05-18 04:57] LABS: Basophils % 0.2 % (0.0-0.8); Hematocrit 38.4 VOL% (42.0-52.0); Immature Granulocytes % 1.7 %; Immature Granulocytes Absolute 0.19 #; Lymphocytes # 0.5 10*3/uL (1.4-4.0); Lymphocytes % 4.3 % (21.2-54.2); Mean Corpuscular HGB Conc 31.3 GM/DL (32-36); Mean Corpuscular Volume 96.7 FL (87-102); Mean Platelet Volume 11.2 FL (9.6-12.0); Monocytes % 3.5 % (1.7-12.7); Neutrophils % 90.3 % (38.7-73.9); Platelet Count 319 T/CUMM (130-400); Red Blood Count 3.97 MC/CUMM (3.8-5.5); Red Cell Distribution Width 14.6 % (9.3-17.3); White Blood Count 11.5 T/CUMM (4-12)
[2020-05-18 05:16] LABS: Calcium 8.7 MG/DL (8.5-10.1); Osmolality,Calculated 313.3 MOS/KG (273-304)
[2020-05-18 05:22] LABS: Hypochromasia 1+; Lymphocytes 4 % (20-55); Platelet Estimate Adequate; Segmented Neutrophils 95 % (50-85); Total Cells Counted 100
[2020-05-18] MEDS: LEVOTHYROXINE 150 MCG TABLET PO SCH (06:28)
[2020-05-18] MEDS: ASCORBIC ACID 500 MG TABLET PER TUBE SCH (09:00)
[2020-05-18] MEDS: DEXAMETHASONE 4 MG/1 ML VIAL IV SCH (09:00)
[2020-05-18] MEDS: ZINC GLUCONATE 50 MG TABLET PER TUBE SCH (09:00)
[2020-05-18] MEDS: fentaNYL INJ 1,250 MCG in SODIUM CHLORIDE 0.9% 225 ML IV PRN ×2 (09:31→22:28)
[2020-05-18] MEDS ORDERED: POLYETHYLENE GLYCOL POWDER 17 GM PACK PO PRN (10:00)
[2020-05-18] MEDS: MIDAZOLAM 100 MG in SODIUM CHLORIDE 0.9% 80 ML IV PRN (11:33)
[2020-05-18] MEDS: CLOPIDOGREL 75 MG TABLET PO SCH (12:18)
[2020-05-18] MEDS ORDERED: SODIUM CHLORIDE 0.9% 1,000 ML IV PRN (12:44)
[2020-05-18] MEDS: cefTRIAXone 1,000 MG in SYRINGE 1 EACH IV SCH (21:43)
[2020-05-18] MEDS: INSULIN GLARGINE 100 UNIT/ML SUBCUT SCH (21:50)
[2020-05-18] MEDS: SIMVASTATIN 10 MG TABLET PO SCH (21:52)
[2020-05-19] MEDS: ENOXAPARIN 60 MG/0.6 ML SYRINGE SUBCUT SCH ×2 (00:53→12:13)
[2020-05-19] MEDS: FAMOTIDINE 20 MG/2 ML VIAL IV SCH ×2 (00:53→12:13)
[2020-05-19] MEDS: INSULIN LISPRO 100 UNIT/ML SUBCUT SCH ×4 (00:53→17:24)
[2020-05-19] MEDS: ACETAMINOPHEN 325 MG TABLET PO PRN ×2 (00:56→14:44)
[2020-05-19 03:31] LABS: Basophils % 0.1 % (0.0-0.8); Hematocrit 37.6 VOL% (42.0-52.0); Hemoglobin 11.6 GM/DL (14.0-18.0); Immature Granulocytes % 1.7 %; Immature Granulocytes Absolute 0.18 #; Lymphocytes # 0.6 10*3/uL (1.4-4.0); Lymphocytes % 5.3 % (21.2-54.2); Mean Corpuscular HGB Conc 30.9 GM/DL (32-36); Mean Corpuscular Volume 97.2 FL (87-102); Mean Platelet Volume 11.3 FL (9.6-12.0); Monocytes % 3.9 % (1.7-12.7); Platelet Count 329 T/CUMM (130-400); Red Blood Count 3.87 MC/CUMM (3.8-5.5); Red Cell Distribution Width 14.6 % (9.3-17.3); White Blood Count 10.5 T/CUMM (4-12)
[2020-05-19 03:59] LABS: ABG Base Excess 1.5 MMOL/L (-2.5-2.5); ABG HCO3 25.8 MMOL/L (20-26); ABG Oxygen Saturation 98.8 % (95-100); ABG PCO2 37.8 MM HG (35-48); ABG PH 7.438 (7.35-7.45); ABG TCO2 22.6 MMOL/L (23-27); Allen Test Positive; Pt O2 Delivery Device Ventilator
[2020-05-19 03:59] LABS: Calcium 8.7 MG/DL (8.5-10.1); Osmolality,Calculated 310.4 MOS/KG (273-304)
[2020-05-19] MEDS: LEVOTHYROXINE 150 MCG TABLET PO SCH (06:08)
[2020-05-19] MEDS: ZINC GLUCONATE 50 MG TABLET PER TUBE SCH (09:06)
[2020-05-19] MEDS: ASCORBIC ACID 500 MG TABLET PER TUBE SCH (09:06)
[2020-05-19] MEDS: DEXAMETHASONE 4 MG/1 ML VIAL IV SCH (09:06)
[2020-05-19] MEDS: MIDAZOLAM 100 MG in SODIUM CHLORIDE 0.9% 80 ML IV PRN (10:48)
[2020-05-19] MEDS: fentaNYL INJ 1,250 MCG in SODIUM CHLORIDE 0.9% 225 ML IV PRN (10:58)
[2020-05-19] MEDS: CLOPIDOGREL 75 MG TABLET PO SCH (12:14)
[2020-05-19] MEDS: METOCLOPRAMIDE 10 MG/2 ML VIAL IV SCH ×2 (14:43→18:23)
[2020-05-19] MEDS: ALBUTEROL 0.4 MG/ML 30 ML/BOTTLE PO SCH (19:41)
[2020-05-19] MEDS: cefTRIAXone 1,000 MG in SYRINGE 1 EACH IV SCH (20:01)
[2020-05-19] MEDS: INSULIN GLARGINE 100 UNIT/ML SUBCUT SCH (20:01)
[2020-05-19] MEDS: SIMVASTATIN 10 MG TABLET PO SCH (20:02)
[2020-05-20] MEDS: ENOXAPARIN 60 MG/0.6 ML SYRINGE SUBCUT SCH ×2 (00:01→12:35)
[2020-05-20] MEDS: fentaNYL INJ 1,250 MCG in SODIUM CHLORIDE 0.9% 225 ML IV PRN ×2 (00:01→17:50)
[2020-05-20] MEDS: FAMOTIDINE 20 MG/2 ML VIAL IV SCH ×2 (00:01→12:35)
[2020-05-20] MEDS: INSULIN LISPRO 100 UNIT/ML SUBCUT SCH ×4 (00:01→17:38)
[2020-05-20] MEDS: ALBUTEROL 0.4 MG/ML 30 ML/BOTTLE PO SCH ×4 (02:14→20:49)
[2020-05-20 03:50] LABS: Basophils % 0.1 % (0.0-0.8); Hematocrit 35.6 VOL% (42.0-52.0); Hemoglobin 11.3 GM/DL (14.0-18.0); Immature Granulocytes % 1.6 %; Immature Granulocytes Absolute 0.14 #; Lymphocytes # 0.5 10*3/uL (1.4-4.0); Lymphocytes % 6.1 % (21.2-54.2); Mean Corpuscular HGB Conc 31.7 GM/DL (32-36); Mean Corpuscular Volume 93.9 FL (87-102); Mean Platelet Volume 11.5 FL (9.6-12.0); Monocytes % 4.4 % (1.7-12.7); Neutrophils % 87.8 % (38.7-73.9); Platelet Count 303 T/CUMM (130-400); Red Blood Count 3.79 MC/CUMM (3.8-5.5); Red Cell Distribution Width 14.4 % (9.3-17.3); White Blood Count 8.7 T/CUMM (4-12)
[2020-05-20 03:53] LABS: ABG Base Excess 3.2 MMOL/L (-2.5-2.5); ABG HCO3 27.3 MMOL/L (20-26); ABG PCO2 37.4 MM HG (35-48); ABG PH 7.465 (7.35-7.45); ABG TCO2 23.9 MMOL/L (23-27)
[2020-05-20 04:16] LABS: Osmolality,Calculated 305.7 MOS/KG (273-304)
[2020-05-20] MEDS: LEVOTHYROXINE 150 MCG TABLET PO SCH (05:16)
[2020-05-20] MEDS: METOCLOPRAMIDE 10 MG/2 ML VIAL IV SCH ×4 (06:15→19:05)
[2020-05-20] MEDS: DEXAMETHASONE 4 MG/1 ML VIAL IV SCH (08:12)
[2020-05-20] MEDS: ASCORBIC ACID 500 MG TABLET PER TUBE SCH (08:12)
[2020-05-20] MEDS: ZINC GLUCONATE 50 MG TABLET PER TUBE SCH (08:15)
[2020-05-20] MEDS: ACETAMINOPHEN 325 MG TABLET PO PRN ×2 (09:40→17:15)
[2020-05-20] MEDS: CLOPIDOGREL 75 MG TABLET PO SCH (12:35)
[2020-05-20] MEDS: amLODIPine 10 MG TABLET PER TUBE SCH (17:38)
[2020-05-20] MEDS: INSULIN GLARGINE 100 UNIT/ML SUBCUT SCH (20:49)
[2020-05-20] MEDS: SIMVASTATIN 10 MG TABLET PO SCH (20:49)
[2020-05-20] MEDS: MIDAZOLAM 100 MG in SODIUM CHLORIDE 0.9% 80 ML IV PRN (22:19)
[2020-05-21] MEDS: INSULIN LISPRO 100 UNIT/ML SUBCUT SCH ×4 (00:06→17:50)
[2020-05-21] MEDS: ENOXAPARIN 60 MG/0.6 ML SYRINGE SUBCUT SCH ×2 (00:07→11:45)
[2020-05-21] MEDS: METOCLOPRAMIDE 10 MG/2 ML VIAL IV SCH ×4 (00:07→17:48)
[2020-05-21] MEDS: FAMOTIDINE 20 MG/2 ML VIAL IV SCH ×2 (00:07→11:45)
[2020-05-21] MEDS: fentaNYL INJ 1,250 MCG in SODIUM CHLORIDE 0.9% 225 ML IV PRN (01:45)
[2020-05-21] MEDS: fentaNYL INJ 2,500 MCG in SODIUM CHLORIDE 0.9% 450 ML IV PRN (01:46)
[2020-05-21] MEDS: ALBUTEROL 0.4 MG/ML 30 ML/BOTTLE PO SCH ×4 (03:30→20:30)
[2020-05-21 03:44] LABS: Basophils % 0.1 % (0.0-0.8); Hemoglobin 11.5 GM/DL (14.0-18.0); Immature Granulocytes % 0.9 %; Immature Granulocytes Absolute 0.09 #; Lymphocytes # 0.5 10*3/uL (1.4-4.0); Lymphocytes % 5.2 % (21.2-54.2); Mean Corpuscular HGB Conc 31.1 GM/DL (32-36); Mean Corpuscular Volume 95.6 FL (87-102); Mean Platelet Volume 11.7 FL (9.6-12.0); Neutrophils % 87.8 % (38.7-73.9); Platelet Count 313 T/CUMM (130-400); Red Blood Count 3.87 MC/CUMM (3.8-5.5); White Blood Count 10.2 T/CUMM (4-12)
[2020-05-21 04:03] LABS: Calcium 8.8 MG/DL (8.5-10.1)
[2020-05-21 05:02] LABS: ABG Base Excess 4.1 MMOL/L (-2.5-2.5); ABG PCO2 35.4 MM HG (35-48); ABG PH 7.493 (7.35-7.45); ABG PO2 77.3 MM HG (80-95); ABG TCO2 23.4 MMOL/L (23-27); Allen Test Positive; Pt O2 Delivery Device Ventilator
[2020-05-21] MEDS: LEVOTHYROXINE 150 MCG TABLET PO SCH (06:21)
[2020-05-21] MEDS: ASCORBIC ACID 500 MG TABLET PER TUBE SCH (08:05)
[2020-05-21] MEDS: amLODIPine 10 MG TABLET PER TUBE SCH (08:05)
[2020-05-21] MEDS: ZINC GLUCONATE 50 MG TABLET PER TUBE SCH (08:05)
[2020-05-21] MEDS: DEXAMETHASONE 4 MG/1 ML VIAL IV SCH (08:05)
[2020-05-21] MEDS: CLOPIDOGREL 75 MG TABLET PO SCH (11:45)
[2020-05-21 18:08] LABS: Apearance,Urine CLEAR (Clear); Bacteria,Urine Occasional /HPF (Few); Bilirubin,Urine Negative (Negative); Blood, Urine Moderate mg/dL (Negative); Glucose,Urine (UA) Negative (Negative); Ketones,Urine Negative (Negative); Mucus,Urine Occasional /LPF (Occasional); Nitrite,Urine Negative (Negative); Protein,Urine Negative; RBC,Urine 29 /HPF (0-4); Urine Color Yellow (Yellow); Urine Specific Gravity 1.017 (1.001-1.035); WBC,Urine 2 /HPF (0-6)
[2020-05-21] MEDS: SIMVASTATIN 10 MG TABLET PO SCH (20:30)
[2020-05-21] MEDS: INSULIN GLARGINE 100 UNIT/ML SUBCUT SCH (20:30)
[2020-05-22] MEDS: FAMOTIDINE 20 MG/2 ML VIAL IV SCH ×2 (00:30→11:55)
[2020-05-22] MEDS: INSULIN LISPRO 100 UNIT/ML SUBCUT SCH ×4 (00:45→18:20)
[2020-05-22] MEDS: METOCLOPRAMIDE 10 MG/2 ML VIAL IV SCH ×4 (00:45→18:20)
[2020-05-22] MEDS: ENOXAPARIN 60 MG/0.6 ML SYRINGE SUBCUT SCH ×2 (01:06→11:54)
[2020-05-22] MEDS: ALBUTEROL 0.4 MG/ML 30 ML/BOTTLE PO SCH ×4 (01:07→20:55)
[2020-05-22] MEDS: fentaNYL INJ 2,500 MCG in SODIUM CHLORIDE 0.9% 450 ML IV PRN (04:10)
[2020-05-22 04:17] LABS: Basophils % 0.1 % (0.0-0.8); Hemoglobin 11.7 GM/DL (14.0-18.0); Immature Granulocytes % 0.5 %; Immature Granulocytes Absolute 0.05 #; Lymphocytes # 0.5 10*3/uL (1.4-4.0); Lymphocytes % 5.2 % (21.2-54.2); Mean Corpuscular HGB Conc 31.6 GM/DL (32-36); Mean Corpuscular Volume 94.1 FL (87-102); Mean Platelet Volume 12.1 FL (9.6-12.0); Monocytes % 6.2 % (1.7-12.7); Platelet Count 294 T/CUMM (130-400); Red Blood Count 3.93 MC/CUMM (3.8-5.5); Red Cell Distribution Width 13.5 % (9.3-17.3); White Blood Count 9.6 T/CUMM (4-12)
[2020-05-22 04:29] LABS: Osmolality,Calculated 301.3 MOS/KG (273-304)
[2020-05-22] MEDS: ACETAMINOPHEN 325 MG TABLET PO PRN ×2 (04:59→18:20)
[2020-05-22 05:14] LABS: ABG HCO3 25.1 MMOL/L (20-26); ABG Oxygen Saturation 96.1 % (95-100); ABG PCO2 34.3 MM HG (35-48); ABG PH 7.483 (7.35-7.45); ABG PO2 84.3 MM HG (80-95); ABG TCO2 26.2 MMOL/L (23-27)
[2020-05-22 05:15] LABS: Allen Test Positive; Pt O2 Delivery Device Ventilator
[2020-05-22] MEDS: LEVOTHYROXINE 150 MCG TABLET PO SCH (06:30)
[2020-05-22] MEDS: ZINC GLUCONATE 50 MG TABLET PER TUBE SCH (08:14)
[2020-05-22] MEDS: ASCORBIC ACID 500 MG TABLET PER TUBE SCH (08:14)
[2020-05-22] MEDS: amLODIPine 10 MG TABLET PER TUBE SCH (08:14)
[2020-05-22] MEDS: DEXAMETHASONE 4 MG/1 ML VIAL IV SCH (08:15)
[2020-05-22] MEDS: CLOPIDOGREL 75 MG TABLET PO SCH (11:56)
[2020-05-22] MEDS ORDERED: AMIODARONE 150 MG/3 ML VIAL ONE (13:17)
[2020-05-22] MEDS ORDERED: AMIODARONE INJ 150 MG in DEXTROSE 5% 100 ML IV ONE (13:18)
[2020-05-22] MEDS ORDERED: AMIODARONE INJ 450 MG in DEXTROSE 5% 241 ML IV SCH (13:30)
[2020-05-22] MEDS ORDERED: MIDAZOLAM 100 MG in SODIUM CHLORIDE 0.9% 80 ML IV PRN (14:00)
[2020-05-22] MEDS: PIPERACILLIN/TAZOBACTAM 3,375 MG in SODIUM CHLORIDE 0.9% 100 ML IV SCH (17:30)
[2020-05-22] MEDS: INSULIN GLARGINE 100 UNIT/ML SUBCUT SCH (20:55)
[2020-05-22] MEDS: SIMVASTATIN 10 MG TABLET PO SCH (20:55)
[2020-05-23] MEDS: ENOXAPARIN 60 MG/0.6 ML SYRINGE SUBCUT SCH ×2 (00:13→11:17)
[2020-05-23] MEDS: INSULIN LISPRO 100 UNIT/ML SUBCUT SCH ×4 (00:13→17:49)
[2020-05-23] MEDS: METOCLOPRAMIDE 10 MG/2 ML VIAL IV SCH ×4 (00:14→18:23)
[2020-05-23] MEDS: PIPERACILLIN/TAZOBACTAM 3,375 MG in SODIUM CHLORIDE 0.9% 100 ML IV SCH ×2 (00:14→07:58)
[2020-05-23] MEDS: FAMOTIDINE 20 MG/2 ML VIAL IV SCH ×2 (00:14→11:17)
[2020-05-23] MEDS: ALBUTEROL 0.4 MG/ML 30 ML/BOTTLE PO SCH ×4 (04:14→20:00)
[2020-05-23 04:36] LABS: Hematocrit 37.1 VOL% (42.0-52.0); Hemoglobin 11.7 GM/DL (14.0-18.0); Immature Granulocytes % 0.8 %; Lymphocytes # 0.5 10*3/uL (1.4-4.0); Lymphocytes % 4.4 % (21.2-54.2); Mean Corpuscular HGB Conc 31.5 GM/DL (32-36); Mean Corpuscular Volume 94.2 FL (87-102); Mean Platelet Volume 12.7 FL (9.6-12.0); Monocytes % 5.9 % (1.7-12.7); Neutrophils % 88.9 % (38.7-73.9); Red Blood Count 3.94 MC/CUMM (3.8-5.5); Red Cell Distribution Width 13.3 % (9.3-17.3); White Blood Count 11.9 T/CUMM (4-12)
[2020-05-23 04:37] LABS: Platelet Count 199 T/CUMM (130-400)
[2020-05-23 04:38] LABS: ABG Base Excess 2.4 MMOL/L (-2.5-2.5); ABG HCO3 26.5 MMOL/L (20-26); ABG Oxygen Saturation 95.5 % (95-100); ABG PCO2 36.8 MM HG (35-48); ABG PH 7.459 (7.35-7.45); ABG TCO2 23.3 MMOL/L (23-27)
[2020-05-23 05:08] LABS: Osmolality,Calculated 300.4 MOS/KG (273-304)
[2020-05-23 05:30] VITALS: BP 134/69
[2020-05-23 06:11] LABS: Band Neutrophils 3 % (0-10); Lymphocytes 4 % (20-55); Platelet Estimate Normal; Segmented Neutrophils 84 % (50-85); Total Cells Counted 100
[2020-05-23 06:12] LABS: Anisocytosis 1+; Smudge Cells Few
[2020-05-23] MEDS: LEVOTHYROXINE 150 MCG TABLET PO SCH (06:20)
[2020-05-23] MEDS: amLODIPine 10 MG TABLET PER TUBE SCH (08:00)
[2020-05-23] MEDS: ASCORBIC ACID 500 MG TABLET PER TUBE SCH (08:00)
[2020-05-23] MEDS: ZINC GLUCONATE 50 MG TABLET PER TUBE SCH (08:00)
[2020-05-23] MEDS: CLOPIDOGREL 75 MG TABLET PO SCH (11:17)
[2020-05-23] MEDS: MEROPENEM 500 MG in SODIUM CHLORIDE 0.9% 100 ML IV SCH ×2 (11:32→16:34)
[2020-05-23] MEDS: INSULIN GLARGINE 100 UNIT/ML SUBCUT SCH (21:17)
[2020-05-23] MEDS: SIMVASTATIN 10 MG TABLET PO SCH (21:18)
[2020-05-24] MEDS: MEROPENEM 500 MG in SODIUM CHLORIDE 0.9% 100 ML IV SCH ×4 (00:35→18:03)
[2020-05-24] MEDS: INSULIN LISPRO 100 UNIT/ML SUBCUT SCH ×4 (01:15→18:03)
[2020-05-24] MEDS: ENOXAPARIN 60 MG/0.6 ML SYRINGE SUBCUT SCH ×2 (01:15→11:31)
[2020-05-24] MEDS: FAMOTIDINE 20 MG/2 ML VIAL IV SCH ×2 (01:15→11:42)
[2020-05-24] MEDS: METOCLOPRAMIDE 10 MG/2 ML VIAL IV SCH ×4 (01:18→18:04)
[2020-05-24] MEDS: ALBUTEROL 0.4 MG/ML 30 ML/BOTTLE PO SCH ×4 (02:38→20:15)
[2020-05-24 03:31] LABS: ABG Base Excess 2.2 MMOL/L (-2.5-2.5); ABG HCO3 26.2 MMOL/L (20-26); ABG Oxygen Saturation 94.7 % (95-100); ABG PCO2 38.6 MM HG (35-48); ABG PO2 75.5 MM HG (80-95); ABG TCO2 27.4 MMOL/L (23-27)
[2020-05-24 03:54] LABS: Basophils % 0.1 % (0.0-0.8); Eosinophils % 0.2 % (0.00-10.9); Hematocrit 35.7 VOL% (42.0-52.0); Hemoglobin 11.5 GM/DL (14.0-18.0); Immature Granulocytes % 0.7 %; Immature Granulocytes Absolute 0.08 #; Lymphocytes # 0.8 10*3/uL (1.4-4.0); Lymphocytes % 7.2 % (21.2-54.2); Mean Corpuscular HGB Conc 32.2 GM/DL (32-36); Mean Corpuscular Volume 94.4 FL (87-102); Mean Platelet Volume 12.4 FL (9.6-12.0); Monocytes % 5.2 % (1.7-12.7); Neutrophils % 86.6 % (38.7-73.9); Platelet Count 269 T/CUMM (130-400); Red Blood Count 3.78 MC/CUMM (3.8-5.5); Red Cell Distribution Width 13.5 % (9.3-17.3)
[2020-05-24 03:58] LABS: Osmolality,Calculated 297.3 MOS/KG (273-304)
[2020-05-24] MEDS: LEVOTHYROXINE 150 MCG TABLET PO SCH (06:13)
[2020-05-24] MEDS: ZINC GLUCONATE 50 MG TABLET PER TUBE SCH (08:00)
[2020-05-24] MEDS: ASCORBIC ACID 500 MG TABLET PER TUBE SCH (08:00)
[2020-05-24] MEDS: amLODIPine 10 MG TABLET PER TUBE SCH (08:01)
[2020-05-24] MEDS: CLOPIDOGREL 75 MG TABLET PO SCH (11:35)
[2020-05-24] MEDS: INSULIN GLARGINE 100 UNIT/ML SUBCUT SCH (20:15)
[2020-05-24] MEDS: SIMVASTATIN 10 MG TABLET PO SCH (20:15)
[2020-05-25] MEDS: INSULIN LISPRO 100 UNIT/ML SUBCUT SCH ×5 (00:05→23:46)
[2020-05-25] MEDS: MEROPENEM 500 MG in SODIUM CHLORIDE 0.9% 100 ML IV SCH ×2 (00:05→06:20)
[2020-05-25] MEDS: ENOXAPARIN 60 MG/0.6 ML SYRINGE SUBCUT SCH ×3 (00:06→23:47)
[2020-05-25] MEDS: FAMOTIDINE 20 MG/2 ML VIAL IV SCH ×3 (00:06→23:47)
[2020-05-25] MEDS: METOCLOPRAMIDE 10 MG/2 ML VIAL IV SCH ×4 (00:06→18:05)
[2020-05-25] MEDS: ALBUTEROL 0.4 MG/ML 30 ML/BOTTLE PO SCH ×4 (02:04→21:56)
[2020-05-25 04:43] LABS: ABG Base Excess 3.4 MMOL/L (-2.5-2.5); ABG HCO3 26.9 MMOL/L (20-26); ABG PCO2 37.1 MM HG (35-48); ABG PH 7.479 (7.35-7.45); ABG PO2 75.6 MM HG (80-95); ABG TCO2 28.1 MMOL/L (23-27)
[2020-05-25 05:37] LABS: Calcium 9.2 MG/DL (8.5-10.1); Osmolality,Calculated 296.3 MOS/KG (273-304)
[2020-05-25] MEDS: LEVOTHYROXINE 150 MCG TABLET PO SCH (06:21)
[2020-05-25] MEDS: ZINC GLUCONATE 50 MG TABLET PER TUBE SCH (08:53)
[2020-05-25] MEDS: amLODIPine 10 MG TABLET PER TUBE SCH (08:53)
[2020-05-25] MEDS: ASCORBIC ACID 500 MG TABLET PER TUBE SCH (08:53)
[2020-05-25] MEDS: CIPROFLOXACIN INJ 400 MG in PREMIX 1 EACH IV SCH ×2 (10:53→18:03)
[2020-05-25] MEDS: CLOPIDOGREL 75 MG TABLET PO SCH (12:15)
[2020-05-25] MEDS ORDERED: METOPROLOL TARTRATE 5 MG/5 ML VIAL IV PRN (14:08)
[2020-05-25] MEDS: LOSARTAN 25 MG TABLET PO SCH (17:45)
[2020-05-25] MEDS: SIMVASTATIN 10 MG TABLET PO SCH (20:26)
[2020-05-25] MEDS: INSULIN GLARGINE 100 UNIT/ML SUBCUT SCH (20:26)
[2020-05-26] MEDS: METOCLOPRAMIDE 10 MG/2 ML VIAL IV SCH ×4 (00:30→18:42)
[2020-05-26] MEDS: ALBUTEROL 0.4 MG/ML 30 ML/BOTTLE PO SCH ×4 (01:47→19:59)
[2020-05-26] MEDS: CIPROFLOXACIN INJ 400 MG in PREMIX 1 EACH IV SCH ×3 (04:51→18:41)
[2020-05-26 04:57] LABS: ABG Base Excess 3.9 MMOL/L (-2.5-2.5); ABG HCO3 26.3 MMOL/L (20-26); ABG Oxygen Saturation 98.1 % (95-100); ABG PCO2 32.4 MM HG (35-48); ABG PH 7.528 (7.35-7.45); ABG PO2 111.3 MM HG (80-95); ABG TCO2 27.3 MMOL/L (23-27); Allen Test Positive; Pt O2 Delivery Device Ventilator
[2020-05-26 05:02] LABS: Basophils % 0.1 % (0.0-0.8); Eosinophils # 0.1 10*3/uL (0.0-0.87); Eosinophils % 1.3 % (0.00-10.9); Hemoglobin 10.5 GM/DL (14.0-18.0); Immature Granulocytes % 1.1 %; Immature Granulocytes Absolute 0.11 #; Lymphocytes # 0.9 10*3/uL (1.4-4.0); Lymphocytes % 8.4 % (21.2-54.2); Mean Corpuscular HGB Conc 30.9 GM/DL (32-36); Mean Corpuscular Volume 96.3 FL (87-102); Mean Platelet Volume 12.3 FL (9.6-12.0); Monocytes % 4.8 % (1.7-12.7); Neutrophils % 84.3 % (38.7-73.9); Platelet Count 272 T/CUMM (130-400); Red Blood Count 3.53 MC/CUMM (3.8-5.5); Red Cell Distribution Width 13.7 % (9.3-17.3); White Blood Count 10.5 T/CUMM (4-12)
[2020-05-26 05:28] LABS: Calcium 9.2 MG/DL (8.5-10.1); Osmolality,Calculated 290.3 MOS/KG (273-304)
[2020-05-26] MEDS: INSULIN LISPRO 100 UNIT/ML SUBCUT SCH ×4 (06:23→23:47)
[2020-05-26] MEDS: LEVOTHYROXINE 150 MCG TABLET PO SCH (06:23)
[2020-05-26] MEDS: ASCORBIC ACID 500 MG TABLET PER TUBE SCH (08:01)
[2020-05-26] MEDS: LOSARTAN 25 MG TABLET PO SCH (08:01)
[2020-05-26] MEDS: ZINC GLUCONATE 50 MG TABLET PER TUBE SCH (08:01)
[2020-05-26] MEDS: amLODIPine 10 MG TABLET PER TUBE SCH (08:01)
[2020-05-26] MEDS: ENOXAPARIN 60 MG/0.6 ML SYRINGE SUBCUT SCH ×2 (11:55→23:46)
[2020-05-26] MEDS: FAMOTIDINE 20 MG/2 ML VIAL IV SCH ×2 (11:55→23:46)
[2020-05-26] MEDS: CLOPIDOGREL 75 MG TABLET PO SCH (11:55)
[2020-05-26] MEDS: INSULIN GLARGINE 100 UNIT/ML SUBCUT SCH (19:59)
[2020-05-26] MEDS: SIMVASTATIN 10 MG TABLET PO SCH (19:59)
[2020-05-27] MEDS: METOCLOPRAMIDE 10 MG/2 ML VIAL IV SCH ×4 (01:36→18:03)
[2020-05-27] MEDS: ALBUTEROL 0.4 MG/ML 30 ML/BOTTLE PO SCH ×4 (01:37→20:39)
[2020-05-27 04:48] LABS: ABG Base Excess 2.7 MMOL/L (-2.5-2.5); ABG HCO3 27.2 MMOL/L (20-26); ABG Oxygen Saturation 97.2 % (95-100); ABG PCO2 41.3 MM HG (35-48); ABG PH 7.436 (7.35-7.45); ABG PO2 97.7 MM HG (80-95); ABG TCO2 28.4 MMOL/L (23-27); Allen Test Positive; Pt O2 Delivery Device Ventilator
[2020-05-27] MEDS: CIPROFLOXACIN INJ 400 MG in PREMIX 1 EACH IV SCH ×3 (04:48→18:02)
[2020-05-27 06:34] LABS: Basophils % 0.1 % (0.0-0.8); Eosinophils # 0.3 10*3/uL (0.0-0.87); Hematocrit 35.5 VOL% (42.0-52.0); Hemoglobin 10.9 GM/DL (14.0-18.0); Immature Granulocytes % 0.8 %; Immature Granulocytes Absolute 0.08 #; Lymphocytes # 0.6 10*3/uL (1.4-4.0); Lymphocytes % 6.2 % (21.2-54.2); Mean Corpuscular HGB Conc 30.7 GM/DL (32-36); Mean Corpuscular Volume 98.1 FL (87-102); Mean Platelet Volume 12.5 FL (9.6-12.0); Monocytes % 5.5 % (1.7-12.7); Neutrophils % 84.4 % (38.7-73.9); Red Blood Count 3.62 MC/CUMM (3.8-5.5); Red Cell Distribution Width 13.7 % (9.3-17.3); White Blood Count 10.3 T/CUMM (4-12)
[2020-05-27] MEDS: LEVOTHYROXINE 150 MCG TABLET PO SCH (06:41)
[2020-05-27 06:42] LABS: Platelet Count 217 T/CUMM (130-400)
[2020-05-27] MEDS: INSULIN LISPRO 100 UNIT/ML SUBCUT SCH ×3 (06:42→18:00)
[2020-05-27 06:59] LABS: Calcium 9.1 MG/DL (8.5-10.1); Osmolality,Calculated 286.4 MOS/KG (273-304)
[2020-05-27 07:00] LABS: Platelet Estimate Normal
[2020-05-27 07:01] LABS: Anisocytosis Slight
[2020-05-27] MEDS: ZINC GLUCONATE 50 MG TABLET PER TUBE SCH (08:40)
[2020-05-27] MEDS: amLODIPine 10 MG TABLET PER TUBE SCH (08:40)
[2020-05-27] MEDS: LOSARTAN 25 MG TABLET PO SCH (08:40)
[2020-05-27] MEDS: ASCORBIC ACID 500 MG TABLET PER TUBE SCH (08:40)
[2020-05-27] MEDS: ENOXAPARIN 60 MG/0.6 ML SYRINGE SUBCUT SCH (11:39)
[2020-05-27] MEDS: CLOPIDOGREL 75 MG TABLET PO SCH (11:39)
[2020-05-27] MEDS: FAMOTIDINE 20 MG/2 ML VIAL IV SCH (11:39)
[2020-05-27] MEDS: NYSTATIN POWDER 15 GM BOTTLE TOP SCH ×2 (11:42→20:39)
[2020-05-27] MEDS ORDERED: SODIUM CHLORIDE 0.9% 500 ML IV ONE (16:05)
[2020-05-27] MEDS ORDERED: PHENYLEPHRINE DRIP 40 MG/250 ML PREMIX IV PRN (16:05)
[2020-05-27] MEDS ORDERED: PHENYLEPHRINE DRIP 40 MG/250 ML PREMIX IV ONE (16:08)
[2020-05-27] MEDS: INSULIN GLARGINE 100 UNIT/ML SUBCUT SCH (20:39)
[2020-05-27] MEDS: SIMVASTATIN 10 MG TABLET PO SCH (20:39)
[2020-05-28] MEDS: INSULIN LISPRO 100 UNIT/ML SUBCUT SCH ×4 (00:23→18:28)
[2020-05-28] MEDS: ENOXAPARIN 60 MG/0.6 ML SYRINGE SUBCUT SCH ×3 (00:52→23:42)
[2020-05-28] MEDS: METOCLOPRAMIDE 10 MG/2 ML VIAL IV SCH ×4 (00:52→18:29)
[2020-05-28] MEDS: FAMOTIDINE 20 MG/2 ML VIAL IV SCH ×3 (00:52→23:42)
[2020-05-28] MEDS: ALBUTEROL 0.4 MG/ML 30 ML/BOTTLE PO SCH ×2 (01:08→08:20)
[2020-05-28 03:11] LABS: ABG Base Excess 3.2 MMOL/L (-2.5-2.5); ABG HCO3 27.2 MMOL/L (20-26); ABG Oxygen Saturation 97.6 % (95-100); ABG PCO2 41.9 MM HG (35-48); ABG PH 7.429 (7.35-7.45); ABG PO2 91.2 MM HG (80-95); ABG TCO2 25.1 MMOL/L (23-27)
[2020-05-28] MEDS: CIPROFLOXACIN INJ 400 MG in PREMIX 1 EACH IV SCH ×3 (03:39→18:29)
[2020-05-28 04:18] LABS: Basophils % 0.2 % (0.0-0.8); Eosinophils # 0.4 10*3/uL (0.0-0.87); Eosinophils % 4.9 % (0.00-10.9); Hematocrit 34.1 VOL% (42.0-52.0); Hemoglobin 10.5 GM/DL (14.0-18.0); Immature Granulocytes % 1.2 %; Lymphocytes # 0.9 10*3/uL (1.4-4.0); Lymphocytes % 10.4 % (21.2-54.2); Mean Corpuscular HGB Conc 30.8 GM/DL (32-36); Mean Corpuscular Volume 96.9 FL (87-102); Mean Platelet Volume 11.3 FL (9.6-12.0); Monocytes % 5.7 % (1.7-12.7); Neutrophils % 77.6 % (38.7-73.9); Platelet Count 300 T/CUMM (130-400); Red Blood Count 3.52 MC/CUMM (3.8-5.5); Red Cell Distribution Width 13.5 % (9.3-17.3); White Blood Count 8.7 T/CUMM (4-12)
[2020-05-28 04:34] LABS: Calcium 8.4 MG/DL (8.5-10.1); Osmolality,Calculated 287.1 MOS/KG (273-304)
[2020-05-28] MEDS: LEVOTHYROXINE 150 MCG TABLET PO SCH (06:30)
[2020-05-28] MEDS: NYSTATIN POWDER 15 GM BOTTLE TOP SCH ×2 (08:20→20:39)
[2020-05-28] MEDS: ZINC GLUCONATE 50 MG TABLET PER TUBE SCH (08:21)
[2020-05-28] MEDS: ASCORBIC ACID 500 MG TABLET PER TUBE SCH (08:26)
[2020-05-28] MEDS: SODIUM CHLORIDE 0.9% 1,000 ML IV SCH ×2 (09:30→23:41)
[2020-05-28] MEDS: CLOPIDOGREL 75 MG TABLET PO SCH (11:38)
[2020-05-28] MEDS: LORazepam 2 MG/1 ML VIAL IV PRN ×2 (15:18→20:40)
[2020-05-28] MEDS: INSULIN GLARGINE 100 UNIT/ML SUBCUT SCH (20:39)
[2020-05-28] MEDS: SIMVASTATIN 10 MG TABLET PO SCH (20:39)
[2020-05-29] MEDS: INSULIN LISPRO 100 UNIT/ML SUBCUT SCH ×4 (00:31→17:33)
[2020-05-29] MEDS: METOCLOPRAMIDE 10 MG/2 ML VIAL IV SCH ×4 (00:49→17:20)
[2020-05-29] MEDS: CIPROFLOXACIN INJ 400 MG in PREMIX 1 EACH IV SCH ×3 (03:00→18:12)
[2020-05-29 04:54] LABS: Basophils % 0.3 % (0.0-0.8); Eosinophils # 0.4 10*3/uL (0.0-0.87); Eosinophils % 5.7 % (0.00-10.9); Hematocrit 31.6 VOL% (42.0-52.0); Hemoglobin 9.9 GM/DL (14.0-18.0); Immature Granulocytes % 0.7 %; Immature Granulocytes Absolute 0.05 #; Lymphocytes # 0.8 10*3/uL (1.4-4.0); Lymphocytes % 10.2 % (21.2-54.2); Mean Corpuscular HGB Conc 31.3 GM/DL (32-36); Mean Corpuscular Volume 95.2 FL (87-102); Mean Platelet Volume 11.3 FL (9.6-12.0); Monocytes % 6.6 % (1.7-12.7); Neutrophils % 76.5 % (38.7-73.9); Platelet Count 272 T/CUMM (130-400); Red Blood Count 3.32 MC/CUMM (3.8-5.5); Red Cell Distribution Width 13.7 % (9.3-17.3); White Blood Count 7.5 T/CUMM (4-12)
[2020-05-29 04:59] LABS: Calcium 8.7 MG/DL (8.5-10.1); Osmolality,Calculated 283.3 MOS/KG (273-304)
[2020-05-29 05:01] LABS: ABG Base Excess 2.8 MMOL/L (-2.5-2.5); ABG HCO3 26.9 MMOL/L (20-26); ABG Oxygen Saturation 94.7 % (95-100); ABG PCO2 42.4 MM HG (35-48); ABG PH 7.421 (7.35-7.45); ABG PO2 73.1 MM HG (80-95); Allen Test Positive; Pt O2 Delivery Device Ventilator
[2020-05-29] MEDS: LEVOTHYROXINE 150 MCG TABLET PO SCH (05:32)
[2020-05-29] MEDS: POTASSIUM CHLORIDE RIDER 10 MEQ in PREMIX 1 EACH IV PRN ×3 (08:10→13:20)
[2020-05-29] MEDS: NYSTATIN POWDER 15 GM BOTTLE TOP SCH ×2 (08:17→20:54)
[2020-05-29] MEDS: ZINC GLUCONATE 50 MG TABLET PER TUBE SCH (08:17)
[2020-05-29] MEDS: ASCORBIC ACID 500 MG TABLET PER TUBE SCH (08:17)
[2020-05-29] MEDS ORDERED: LORazepam 2 MG/1 ML VIAL IV PRN (09:09)
[2020-05-29] MEDS: DEXMEDETOMIDINE 400 MCG in SODIUM CHLORIDE 0.9% 96 ML IV PRN ×2 (09:29→23:17)
[2020-05-29] MEDS: ENOXAPARIN 60 MG/0.6 ML SYRINGE SUBCUT SCH (12:10)
[2020-05-29] MEDS: FAMOTIDINE 20 MG/2 ML VIAL IV SCH (12:10)
[2020-05-29] MEDS: CLOPIDOGREL 75 MG TABLET PO SCH (12:12)
[2020-05-29] MEDS: SIMVASTATIN 10 MG TABLET PO SCH (20:54)
[2020-05-29] MEDS: INSULIN GLARGINE 100 UNIT/ML SUBCUT SCH (20:54)
[2020-05-29] MEDS: SODIUM CHLORIDE 0.9% 1,000 ML IV SCH (23:20)
[2020-05-30] MEDS: INSULIN LISPRO 100 UNIT/ML SUBCUT SCH ×4 (00:32→18:18)
[2020-05-30] MEDS: ENOXAPARIN 60 MG/0.6 ML SYRINGE SUBCUT SCH ×2 (00:33→12:05)
[2020-05-30] MEDS: FAMOTIDINE 20 MG/2 ML VIAL IV SCH ×2 (00:34→12:07)
[2020-05-30] MEDS: METOCLOPRAMIDE 10 MG/2 ML VIAL IV SCH ×5 (00:34→20:38)
[2020-05-30] MEDS: ACETAMINOPHEN 325 MG TABLET PO PRN (01:18)
[2020-05-30] MEDS: CIPROFLOXACIN INJ 400 MG in PREMIX 1 EACH IV SCH ×3 (02:08→18:48)
[2020-05-30 04:53] LABS: ABG Base Excess 2.4 MMOL/L (-2.5-2.5); ABG HCO3 26.5 MMOL/L (20-26); ABG Oxygen Saturation 96.1 % (95-100); ABG PCO2 39.9 MM HG (35-48); ABG PH 7.434 (7.35-7.45); ABG PO2 79.5 MM HG (80-95); ABG TCO2 23.3 MMOL/L (23-27); Allen Test Positive; Pt O2 Delivery Device Ventilator
[2020-05-30 05:30] LABS: Basophils % 0.3 % (0.0-0.8); Eosinophils # 0.4 10*3/uL (0.0-0.87); Eosinophils % 5.9 % (0.00-10.9); Hematocrit 34.3 VOL% (42.0-52.0); Hemoglobin 10.8 GM/DL (14.0-18.0); Immature Granulocytes % 0.7 %; Immature Granulocytes Absolute 0.05 #; Lymphocytes # 0.8 10*3/uL (1.4-4.0); Lymphocytes % 11.2 % (21.2-54.2); Mean Corpuscular HGB Conc 31.5 GM/DL (32-36); Mean Corpuscular Volume 95.3 FL (87-102); Mean Platelet Volume 10.3 FL (9.6-12.0); Monocytes % 7.4 % (1.7-12.7); Neutrophils % 74.5 % (38.7-73.9); Platelet Count 260 T/CUMM (130-400); Red Cell Distribution Width 13.9 % (9.3-17.3); White Blood Count 7.5 T/CUMM (4-12)
[2020-05-30 05:46] LABS: Calcium 8.6 MG/DL (8.5-10.1); Osmolality,Calculated 283.3 MOS/KG (273-304)
[2020-05-30] MEDS: LEVOTHYROXINE 150 MCG TABLET PO SCH (06:47)
[2020-05-30] MEDS: NYSTATIN POWDER 15 GM BOTTLE TOP SCH ×2 (08:51→20:40)
[2020-05-30] MEDS: ASCORBIC ACID 500 MG TABLET PER TUBE SCH (08:51)
[2020-05-30] MEDS: ZINC GLUCONATE 50 MG TABLET PER TUBE SCH (08:51)
[2020-05-30] MEDS: CLOPIDOGREL 75 MG TABLET PO SCH (12:05)
[2020-05-30] MEDS: INSULIN GLARGINE 100 UNIT/ML SUBCUT SCH (20:38)
[2020-05-30] MEDS: SIMVASTATIN 10 MG TABLET PO SCH (20:39)
[2020-05-30] MEDS: POTASSIUM CHLORIDE RIDER 10 MEQ in PREMIX 1 EACH IV PRN ×2 (20:40→22:26)
[2020-05-30] MEDS: DEXMEDETOMIDINE 400 MCG in SODIUM CHLORIDE 0.9% 96 ML IV PRN (20:45)
[2020-05-31] MEDS: ENOXAPARIN 60 MG/0.6 ML SYRINGE SUBCUT SCH ×2 (00:48→12:10)
[2020-05-31] MEDS: FAMOTIDINE 20 MG/2 ML VIAL IV SCH ×2 (00:48→12:10)
[2020-05-31] MEDS: INSULIN LISPRO 100 UNIT/ML SUBCUT SCH ×4 (01:50→18:24)
[2020-05-31] MEDS: DEXMEDETOMIDINE 400 MCG in SODIUM CHLORIDE 0.9% 96 ML IV PRN ×4 (04:13→22:52)
[2020-05-31] MEDS: CIPROFLOXACIN INJ 400 MG in PREMIX 1 EACH IV SCH ×3 (04:14→18:53)
[2020-05-31] MEDS: METOCLOPRAMIDE 10 MG/2 ML VIAL IV SCH ×4 (04:16→20:42)
[2020-05-31 04:27] LABS: Basophils % 0.4 % (0.0-0.8); Eosinophils # 0.4 10*3/uL (0.0-0.87); Eosinophils % 5.2 % (0.00-10.9); Hematocrit 32.7 VOL% (42.0-52.0); Hemoglobin 10.5 GM/DL (14.0-18.0); Immature Granulocytes % 0.4 %; Immature Granulocytes Absolute 0.03 #; Lymphocytes # 0.8 10*3/uL (1.4-4.0); Lymphocytes % 11.4 % (21.2-54.2); Mean Corpuscular HGB Conc 32.1 GM/DL (32-36); Mean Platelet Volume 10.7 FL (9.6-12.0); Monocytes % 8.4 % (1.7-12.7); Neutrophils % 74.2 % (38.7-73.9); Platelet Count 229 T/CUMM (130-400); Red Blood Count 3.48 MC/CUMM (3.8-5.5); Red Cell Distribution Width 13.8 % (9.3-17.3)
[2020-05-31 04:35] LABS: Calcium 8.5 MG/DL (8.5-10.1); Osmolality,Calculated 283.3 MOS/KG (273-304)
[2020-05-31 04:36] LABS: ABG Base Excess 3.4 MMOL/L (-2.5-2.5); ABG HCO3 27.4 MMOL/L (20-26); ABG Oxygen Saturation 97.7 % (95-100); ABG PH 7.454 (7.35-7.45); ABG PO2 96.8 MM HG (80-95); ABG TCO2 24.6 MMOL/L (23-27); Allen Test Positive; Pt O2 Delivery Device Ventilator
[2020-05-31] MEDS: LEVOTHYROXINE 150 MCG TABLET PO SCH (05:19)
[2020-05-31] MEDS: POTASSIUM CHLORIDE RIDER 10 MEQ in PREMIX 1 EACH IV PRN ×2 (06:02→06:56)
[2020-05-31] MEDS: ZINC GLUCONATE 50 MG TABLET PER TUBE SCH (08:53)
[2020-05-31] MEDS: NYSTATIN POWDER 15 GM BOTTLE TOP SCH ×2 (08:53→20:54)
[2020-05-31] MEDS: ASCORBIC ACID 500 MG TABLET PER TUBE SCH (08:53)
[2020-05-31] MEDS: CLOPIDOGREL 75 MG TABLET PO SCH (12:10)
[2020-05-31] MEDS: SODIUM CHLORIDE 0.9% 1,000 ML IV SCH (18:24)
[2020-05-31] MEDS: INSULIN GLARGINE 100 UNIT/ML SUBCUT SCH (20:42)
[2020-05-31] MEDS: SIMVASTATIN 10 MG TABLET PO SCH (20:46)
[2020-05-31] MEDS ORDERED: ACETAMINOPHEN 325 MG/10.15 ML UDCUP PO PRN (21:00)
[2020-06-01] MEDS: ENOXAPARIN 60 MG/0.6 ML SYRINGE SUBCUT SCH ×3 (00:03→23:12)
[2020-06-01] MEDS: FAMOTIDINE 20 MG/2 ML VIAL IV SCH ×3 (00:04→23:13)
[2020-06-01] MEDS: INSULIN LISPRO 100 UNIT/ML SUBCUT SCH ×4 (01:07→17:41)
[2020-06-01] MEDS: METOCLOPRAMIDE 10 MG/2 ML VIAL IV SCH ×4 (03:10→22:03)
[2020-06-01] MEDS: CIPROFLOXACIN INJ 400 MG in PREMIX 1 EACH IV SCH ×3 (03:32→19:41)
[2020-06-01] MEDS: DEXMEDETOMIDINE 400 MCG in SODIUM CHLORIDE 0.9% 96 ML IV PRN ×4 (04:04→23:11)
[2020-06-01 04:37] LABS: Basophils % 0.4 % (0.0-0.8); Eosinophils # 0.4 10*3/uL (0.0-0.87); Eosinophils % 5.4 % (0.00-10.9); Hematocrit 32.5 VOL% (42.0-52.0); Hemoglobin 10.6 GM/DL (14.0-18.0); Immature Granulocytes % 0.6 %; Immature Granulocytes Absolute 0.04 #; Lymphocytes % 13.5 % (21.2-54.2); Mean Corpuscular HGB Conc 32.6 GM/DL (32-36); Mean Corpuscular Volume 91.5 FL (87-102); Mean Platelet Volume 10.4 FL (9.6-12.0); Monocytes % 8.7 % (1.7-12.7); Neutrophils % 71.4 % (38.7-73.9); Platelet Count 219 T/CUMM (130-400); Red Blood Count 3.55 MC/CUMM (3.8-5.5); Red Cell Distribution Width 13.4 % (9.3-17.3)
[2020-06-01 05:00] LABS: Calcium 8.7 MG/DL (8.5-10.1); Osmolality,Calculated 284.3 MOS/KG (273-304)
[2020-06-01 05:06] LABS: ABG Base Excess 3.9 MMOL/L (-2.5-2.5); ABG HCO3 27.8 MMOL/L (20-26); ABG Oxygen Saturation 92.7 % (95-100); ABG PCO2 36.6 MM HG (35-48); ABG PH 7.481 (7.35-7.45); ABG PO2 63.8 MM HG (80-95); ABG TCO2 23.2 MMOL/L (23-27); Allen Test Positive; Pt O2 Delivery Device Ventilator
[2020-06-01] MEDS: LEVOTHYROXINE 150 MCG TABLET PO SCH (07:06)
[2020-06-01] MEDS: ZINC GLUCONATE 50 MG TABLET PER TUBE SCH (08:13)
[2020-06-01] MEDS: ASCORBIC ACID 500 MG TABLET PER TUBE SCH (08:13)
[2020-06-01] MEDS: NYSTATIN POWDER 15 GM BOTTLE TOP SCH ×2 (08:32→23:14)
[2020-06-01] MEDS: POTASSIUM CHLORIDE RIDER 10 MEQ in PREMIX 1 EACH IV PRN ×3 (08:33→18:40)
[2020-06-01] MEDS: CLOPIDOGREL 75 MG TABLET PO SCH (11:14)
[2020-06-01] MEDS ORDERED: POTASSIUM PHOSPHATE 30 MMOL in SODIUM CHLORIDE 0.9% 250 ML IV ONE (12:00)
[2020-06-01] MEDS: DESITIN 4OZ/NYSTATIN 15 GRAM MIXTURE PASTE TOP SCH ×2 (14:11→23:14)
[2020-06-01] MEDS: SODIUM CHLORIDE 0.9% 1,000 ML IV SCH (17:41)
[2020-06-01] MEDS: INSULIN GLARGINE 100 UNIT/ML SUBCUT SCH (22:02)
[2020-06-01] MEDS: SIMVASTATIN 10 MG TABLET PO SCH (22:02)
[2020-06-02] MEDS: INSULIN LISPRO 100 UNIT/ML SUBCUT SCH ×4 (00:18→18:17)
[2020-06-02] MEDS: SODIUM CHLORIDE 0.9% 1,000 ML IV SCH ×2 (01:29→17:05)
[2020-06-02] MEDS: METOCLOPRAMIDE 10 MG/2 ML VIAL IV SCH ×3 (03:49→16:00)
[2020-06-02] MEDS: CIPROFLOXACIN INJ 400 MG in PREMIX 1 EACH IV SCH ×2 (03:50→11:06)
[2020-06-02 04:01] LABS: ABG Base Excess 3.3 MMOL/L (-2.5-2.5); ABG HCO3 27.3 MMOL/L (20-26); ABG Oxygen Saturation 95.4 % (95-100); ABG PCO2 31.9 MM HG (35-48); ABG PH 7.516 (7.35-7.45); ABG PO2 71.6 MM HG (80-95); ABG TCO2 23.3 MMOL/L (23-27); Allen Test Positive; Pt O2 Delivery Device Ventilator
[2020-06-02 05:04] LABS: Basophils % 0.3 % (0.0-0.8); Eosinophils # 0.3 10*3/uL (0.0-0.87); Hematocrit 31.8 VOL% (42.0-52.0); Hemoglobin 10.6 GM/DL (14.0-18.0); Immature Granulocytes % 0.3 %; Immature Granulocytes Absolute 0.02 #; Lymphocytes # 0.9 10*3/uL (1.4-4.0); Mean Corpuscular HGB Conc 33.3 GM/DL (32-36); Mean Corpuscular Volume 91.1 FL (87-102); Mean Platelet Volume 10.6 FL (9.6-12.0); Monocytes % 8.3 % (1.7-12.7); Neutrophils % 73.1 % (38.7-73.9); Platelet Count 196 T/CUMM (130-400); Red Blood Count 3.49 MC/CUMM (3.8-5.5); Red Cell Distribution Width 13.5 % (9.3-17.3); White Blood Count 6.6 T/CUMM (4-12)
[2020-06-02] MEDS: DEXMEDETOMIDINE 400 MCG in SODIUM CHLORIDE 0.9% 96 ML IV PRN ×3 (05:11→18:19)
[2020-06-02 05:16] LABS: Calcium 8.4 MG/DL (8.5-10.1); Osmolality,Calculated 280.3 MOS/KG (273-304)
[2020-06-02] MEDS: POTASSIUM CHLORIDE RIDER 10 MEQ in PREMIX 1 EACH IV PRN ×3 (05:37→08:30)
[2020-06-02] MEDS: LEVOTHYROXINE 150 MCG TABLET PO SCH (05:38)
[2020-06-02] MEDS: ZINC GLUCONATE 50 MG TABLET PER TUBE SCH (08:17)
[2020-06-02] MEDS: ASCORBIC ACID 500 MG TABLET PER TUBE SCH (08:17)
[2020-06-02] MEDS: DESITIN 4OZ/NYSTATIN 15 GRAM MIXTURE PASTE TOP SCH (08:19)
[2020-06-02] MEDS: NYSTATIN POWDER 15 GM BOTTLE TOP SCH (08:19)
[2020-06-02] MEDS: ENOXAPARIN 60 MG/0.6 ML SYRINGE SUBCUT SCH (11:06)
[2020-06-02] MEDS: FAMOTIDINE 20 MG/2 ML VIAL IV SCH (11:07)
[2020-06-02] MEDS: CLOPIDOGREL 75 MG TABLET PO SCH (11:07)
== END 2020-06-02 18:46 | DRG 207 ==
LOC: EDBD → EDUNIT# → N.ED 14:29 → N.EDINP 16:44 → SUATTDRO 16:44 → N.2E 05-13 04:20 → N.CC 05-14 10:54
PROVIDERS: ADMIT Internal Medicine; ATTEND Internal Medicine

== ENCOUNTER 2020-07-27 21:15 | Inpatient (IN) ==
[2020-07-27 21:35] LABS: Basophils # 0.1 10*3/uL (0.0-0.2); Basophils % 0.3 % (0.0-0.8); Eosinophils # 0.1 10*3/uL (0.0-0.87); Eosinophils % 0.6 % (0.00-10.9); Hematocrit 38.3 VOL% (42.0-52.0); Hemoglobin 12.3 GM/DL (14.0-18.0); Immature Granulocytes % 0.5 %; Immature Granulocytes Absolute 0.08 #; Lymphocytes # 1.7 10*3/uL (1.4-4.0); Lymphocytes % 10.9 % (21.2-54.2); Mean Corpuscular HGB Conc 32.1 GM/DL (32-36); Mean Corpuscular Volume 95.5 FL (87-102); Mean Platelet Volume 9.7 FL (9.6-12.0); Monocytes % 7.3 % (1.7-12.7); Neutrophils % 80.4 % (38.7-73.9); Platelet Count 395 T/CUMM (130-400); Red Blood Count 4.01 MC/CUMM (3.8-5.5); Red Cell Distribution Width 14.8 % (9.3-17.3); White Blood Count 15.9 T/CUMM (4-12)
[2020-07-27] MEDS ORDERED: SODIUM CHLORIDE 0.9% 500 ML IV STA (21:52)
[2020-07-27] MEDS ORDERED: MORPHINE 4 MG/1 ML VIAL IV STA (21:52)
[2020-07-27] MEDS ORDERED: ALUM/MAG/SIMETH/LIDO VISC 1:1 30 ML BOTTLE PO STA (21:52)
[2020-07-27] MEDS ORDERED: ONDANSETRON 4 MG/2 ML VIAL IV STA (21:52)
[2020-07-27] MEDS ORDERED: PANTOPRAZOLE 40 MG VIAL IV STA (21:52)
[2020-07-27 21:55] LABS: Bilirubin,Total 0.5 MG/DL (0.2-1.0); Calcium 9.9 MG/DL (8.5-10.1); Osmolality,Calculated 277.8 MOS/KG (273-304); Total Protein 9.4 G/DL (6.4-8.3)
[2020-07-27 23:41] LABS: Bilirubin,Urine Negative (Negative); Blood, Urine Negative (Negative); Glucose,Urine (UA) Negative (Negative); Ketones,Urine Negative (Negative); Mucus,Urine Occasional /LPF (Occasional); Nitrite,Urine Negative (Negative); Protein,Urine Negative; RBC,Urine 21 /HPF (0-4); Squamous Epithelial Cell,Urine Occasional /HPF (0-10); Urine Appearance Slightly Hazy (Clear); Urine Color Yellow (Yellow); Urine Specific Gravity 1.034 (1.001-1.035); Urine Urobilinogen < 2.0 EU/DL (0.2-1.0); WBC,Urine 144 /HPF (0-6)
[2020-07-28] MEDS ORDERED: cefTRIAXone 1,000 MG in SODIUM CHLORIDE 0.9% 100 ML IV STA (00:06)
[2020-07-28] MEDS ORDERED: MORPHINE 4 MG/1 ML VIAL IV STA (01:32)
[2020-07-28] MEDS ORDERED: DEXTROSE 50% 25 GM/50 ML VIAL IV PRN (02:27)
[2020-07-28] MEDS ORDERED: NICOTINE 21 MG/24 HR PATCH TRANSDERM PRN (02:27)
[2020-07-28] MEDS ORDERED: GLUCAGON 1 MG VIAL IM PRN (02:27)
[2020-07-28] MEDS ORDERED: MORPHINE 4 MG/1 ML VIAL IV PRN (02:27)
[2020-07-28] MEDS ORDERED: guaiFENesin/DM ER 600-30 MG TABLET PO PRN (02:27)
[2020-07-28] MEDS ORDERED: diphenhydrAMINE CAP 25 MG CAPSULE PO PRN (02:27)
[2020-07-28] MEDS: hydrALAZINE 20 MG/1 ML VIAL IV PRN (04:29)
[2020-07-28] MEDS: metroNIDAZOLE INJ 500 MG in PREMIX 1 EACH IV SCH ×3 (04:29→18:09)
[2020-07-28] MEDS: ONDANSETRON 4 MG/2 ML VIAL IV PRN (04:59)
[2020-07-28] MEDS: HYDROmorphone 2 MG/1 ML VIAL IV PRN ×2 (04:59→15:17)
[2020-07-28] MEDS: INSULIN REGULAR 100 UNIT/ML SUBCUT SCH ×4 (09:55→20:51)
[2020-07-28] MEDS: DEXTROSE 5% NACL 0.9% 1,000 ML IV SCH (14:48)
[2020-07-28] MEDS: METOPROLOL TARTRATE 5 MG/5 ML VIAL IV SCH ×2 (14:49→21:00)
[2020-07-29] MEDS ORDERED: cefTRIAXone 2,000 MG in SYRINGE 1 EACH IV SCH (01:00)
[2020-07-29] MEDS ORDERED: cefTRIAXone 1,000 MG in SYRINGE 1 EACH IV SCH (01:00)
[2020-07-29] MEDS: metroNIDAZOLE INJ 500 MG in PREMIX 1 EACH IV SCH ×2 (03:31→12:19)
[2020-07-29] MEDS: HYDROmorphone 2 MG/1 ML VIAL IV PRN ×3 (03:37→21:42)
[2020-07-29] MEDS: METOPROLOL TARTRATE 5 MG/5 ML VIAL IV SCH ×3 (06:02→21:29)
[2020-07-29 06:07] LABS: Basophils # 0.1 10*3/uL (0.0-0.2); Basophils % 0.3 % (0.0-0.8); Eosinophils # 0.1 10*3/uL (0.0-0.87); Eosinophils % 0.4 % (0.00-10.9); Hematocrit 34.9 VOL% (42.0-52.0); Hemoglobin 11.2 GM/DL (14.0-18.0); Immature Granulocytes % 0.5 %; Immature Granulocytes Absolute 0.09 #; Lymphocytes # 1.6 10*3/uL (1.4-4.0); Lymphocytes % 9.7 % (21.2-54.2); Mean Corpuscular HGB Conc 32.1 GM/DL (32-36); Mean Corpuscular Volume 95.4 FL (87-102); Mean Platelet Volume 9.7 FL (9.6-12.0); Monocytes % 7.7 % (1.7-12.7); Neutrophils % 81.4 % (38.7-73.9); Platelet Count 359 T/CUMM (130-400); Red Blood Count 3.66 MC/CUMM (3.8-5.5); Red Cell Distribution Width 15.1 % (9.3-17.3); White Blood Count 16.7 T/CUMM (4-12)
[2020-07-29 06:31] LABS: Calcium 9.5 MG/DL (8.5-10.1); Osmolality,Calculated 279.7 MOS/KG (273-304)
[2020-07-29] MEDS: LEVOTHYROXINE 100 MCG VIAL IV SCH (07:19)
[2020-07-29] MEDS: LACTATED RINGERS 1,000 ML IV SCH ×2 (07:36→09:16)
[2020-07-29] MEDS: DEXTROSE 5% NACL 0.9% 1,000 ML IV SCH (08:36)
[2020-07-29] MEDS: INSULIN REGULAR 100 UNIT/ML SUBCUT SCH ×4 (08:36→21:28)
[2020-07-29] MEDS ORDERED: LIDOCAINE 2% 5 ML VIAL ONE (09:00)
[2020-07-29] MEDS ORDERED: ETOMIDATE 20 MG/10 ML VIAL IV ONE (09:00)
[2020-07-29] MEDS ORDERED: propofoL 200 MG/20 ML VIAL IV ONE (09:00)
[2020-07-29] MEDS: PIPERACILLIN/TAZOBACTAM 3,375 MG in SODIUM CHLORIDE 0.9% 100 ML IV SCH ×2 (15:25→21:28)
[2020-07-30] MEDS: LEVOTHYROXINE 100 MCG VIAL IV SCH (06:05)
[2020-07-30] MEDS: PIPERACILLIN/TAZOBACTAM 3,375 MG in SODIUM CHLORIDE 0.9% 100 ML IV SCH ×3 (06:05→21:32)
[2020-07-30] MEDS: METOPROLOL TARTRATE 5 MG/5 ML VIAL IV SCH ×3 (06:08→21:31)
[2020-07-30 06:10] LABS: Basophils % 0.3 % (0.0-0.8); Eosinophils # 0.1 10*3/uL (0.0-0.87); Eosinophils % 0.8 % (0.00-10.9); Hematocrit 34.7 VOL% (42.0-52.0); Hemoglobin 11.1 GM/DL (14.0-18.0); Immature Granulocytes % 0.5 %; Immature Granulocytes Absolute 0.06 #; Lymphocytes # 1.4 10*3/uL (1.4-4.0); Mean Corpuscular Volume 95.6 FL (87-102); Mean Platelet Volume 9.9 FL (9.6-12.0); Monocytes % 8.2 % (1.7-12.7); Neutrophils % 78.2 % (38.7-73.9); Platelet Count 327 T/CUMM (130-400); Red Blood Count 3.63 MC/CUMM (3.8-5.5); Red Cell Distribution Width 14.8 % (9.3-17.3); White Blood Count 11.9 T/CUMM (4-12)
[2020-07-30 06:34] LABS: Albumin 2.4 G/DL (3.4-5.0); Bilirubin,Total 0.7 MG/DL (0.2-1.0); Calcium 9.1 MG/DL (8.5-10.1); Osmolality,Calculated 275.8 MOS/KG (273-304); Total Protein 7.9 G/DL (6.4-8.3)
[2020-07-30] MEDS: INSULIN REGULAR 100 UNIT/ML SUBCUT SCH ×4 (07:34→21:13)
[2020-07-30] MEDS: LACTATED RINGERS 1,000 ML IV SCH (07:35)
[2020-07-30] MEDS: ASPIRIN EC 81 MG TABLET PO SCH (09:34)
[2020-07-30] MEDS: ASCORBIC ACID 500 MG TABLET PO SCH (09:34)
[2020-07-30] MEDS: DEXTROSE 5% NACL 0.9% 1,000 ML IV SCH ×2 (09:55→23:56)
[2020-07-30] MEDS ORDERED: TISSUE ADHESIVE 1 EACH APPLICATOR TOP ONE (10:21)
[2020-07-30] MEDS ORDERED: LIDOCAINE 1%/EPI INJ 20 ML VIAL ONE (10:22)
[2020-07-30] MEDS ORDERED: SUGAMMADEX 200 MG/2 ML VIAL IV ONE (12:58)
[2020-07-30] MEDS ORDERED: propofoL 200 MG/20 ML VIAL IV ONE (13:29)
[2020-07-30] MEDS ORDERED: fentaNYL 100 MCG/2 ML VIAL ONE (13:29)
[2020-07-30] MEDS ORDERED: LIDOCAINE 2% 5 ML VIAL ONE (13:29)
[2020-07-30] MEDS ORDERED: PHENYLEPHRINE 1 MG/10 ML SYRINGE IV ONE (13:30)
[2020-07-30] MEDS ORDERED: ETOMIDATE 40 MG/20 ML VIAL IV ONE (13:30)
[2020-07-30] MEDS ORDERED: ROCURONIUM 100 MG/10 ML VIAL IV ONE (13:30)
[2020-07-30] MEDS ORDERED: SEVOFLURANE 1 UNIT/15 MINUTE INH ONE (13:30)
[2020-07-30] MEDS ORDERED: ONDANSETRON 4 MG/2 ML VIAL ONE (13:30)
[2020-07-30] MEDS: HYDROmorphone 2 MG/1 ML VIAL IV PRN ×3 (13:35→23:55)
[2020-07-30] MEDS ORDERED: HYDROmorphone 2 MG/1 ML VIAL IV PRN (13:40)
[2020-07-30] MEDS: hydrALAZINE 20 MG/1 ML VIAL IV PRN (13:50)
[2020-07-30] MEDS: ONDANSETRON 4 MG/2 ML VIAL IV PRN (14:50)
[2020-07-30] MEDS ORDERED: LACTATED RINGERS 1,000 ML IV ONE (16:51)
[2020-07-30] MEDS ORDERED: HYDROmorphone 2 MG/1 ML VIAL IV ONE (16:51)
[2020-07-30] MEDS ORDERED: KETOROLAC 30 MG/1 ML VIAL IV PRN (16:51)
[2020-07-30] MEDS: KETOROLAC 30 MG/1 ML VIAL IV SCH ×2 (17:00→23:56)
[2020-07-30 18:22] LABS: Basophils # 0.1 10*3/uL (0.0-0.2); Basophils % 0.3 % (0.0-0.8); Eosinophils % 0.3 % (0.00-10.9); Hematocrit 32.5 VOL% (42.0-52.0); Hemoglobin 10.4 GM/DL (14.0-18.0); Immature Granulocytes % 0.5 %; Immature Granulocytes Absolute 0.07 #; Lymphocytes % 6.3 % (21.2-54.2); Mean Corpuscular Volume 96.4 FL (87-102); Mean Platelet Volume 10.1 FL (9.6-12.0); Neutrophils % 85.6 % (38.7-73.9); Platelet Count 308 T/CUMM (130-400); Red Blood Count 3.37 MC/CUMM (3.8-5.5); Red Cell Distribution Width 14.8 % (9.3-17.3); White Blood Count 15.3 T/CUMM (4-12)
[2020-07-30 18:41] LABS: Calcium 8.1 MG/DL (8.5-10.1); Osmolality,Calculated 284.3 MOS/KG (273-304)
[2020-07-30] MEDS: ATORVASTATIN 10 MG TABLET PO SCH (21:31)
[2020-07-31] MEDS: HYDROmorphone 2 MG/1 ML VIAL IV PRN ×2 (02:43→13:38)
[2020-07-31 05:24] LABS: Basophils % 0.1 % (0.0-0.8); Eosinophils % 0.1 % (0.00-10.9); Hematocrit 31.8 VOL% (42.0-52.0); Immature Granulocytes % 0.4 %; Immature Granulocytes Absolute 0.06 #; Lymphocytes % 6.6 % (21.2-54.2); Mean Corpuscular HGB Conc 31.4 GM/DL (32-36); Mean Corpuscular Volume 97.5 FL (87-102); Mean Platelet Volume 9.7 FL (9.6-12.0); Monocytes % 7.3 % (1.7-12.7); Neutrophils % 85.5 % (38.7-73.9); Platelet Count 290 T/CUMM (130-400); Red Blood Count 3.26 MC/CUMM (3.8-5.5); Red Cell Distribution Width 14.7 % (9.3-17.3); White Blood Count 14.3 T/CUMM (4-12)
[2020-07-31 05:45] LABS: Albumin 2.1 G/DL (3.4-5.0); Bilirubin,Total 0.6 MG/DL (0.2-1.0); Calcium 8.2 MG/DL (8.5-10.1); Osmolality,Calculated 279.7 MOS/KG (273-304); Total Protein 7.4 G/DL (6.4-8.3)
[2020-07-31] MEDS: METOPROLOL TARTRATE 5 MG/5 ML VIAL IV SCH ×3 (06:02→23:44)
[2020-07-31] MEDS: KETOROLAC 30 MG/1 ML VIAL IV SCH ×4 (06:02→23:39)
[2020-07-31] MEDS: LEVOTHYROXINE 100 MCG VIAL IV SCH (06:02)
[2020-07-31] MEDS: PIPERACILLIN/TAZOBACTAM 3,375 MG in SODIUM CHLORIDE 0.9% 100 ML IV SCH ×3 (06:03→21:29)
[2020-07-31] MEDS: INSULIN REGULAR 100 UNIT/ML SUBCUT SCH ×4 (09:19→21:27)
[2020-07-31] MEDS: ASPIRIN EC 81 MG TABLET PO SCH (09:19)
[2020-07-31] MEDS: ASCORBIC ACID 500 MG TABLET PO SCH (09:19)
[2020-07-31] MEDS: LACTATED RINGERS 1,000 ML IV SCH (09:20)
[2020-07-31] MEDS: ATORVASTATIN 10 MG TABLET PO SCH (21:26)
[2020-08-01] MEDS: KETOROLAC 30 MG/1 ML VIAL IV SCH ×2 (05:34→12:56)
[2020-08-01] MEDS: METOPROLOL TARTRATE 5 MG/5 ML VIAL IV SCH (05:35)
[2020-08-01] MEDS: PIPERACILLIN/TAZOBACTAM 3,375 MG in SODIUM CHLORIDE 0.9% 100 ML IV SCH (05:39)
[2020-08-01] MEDS: DEXTROSE 5% NACL 0.9% 1,000 ML IV SCH (05:41)
[2020-08-01] MEDS: LEVOTHYROXINE 100 MCG VIAL IV SCH (07:30)
[2020-08-01 07:46] LABS: Basophils % 0.3 % (0.0-0.8); Eosinophils # 0.3 10*3/uL (0.0-0.87); Eosinophils % 1.9 % (0.00-10.9); Hematocrit 30.9 VOL% (42.0-52.0); Hemoglobin 9.7 GM/DL (14.0-18.0); Immature Granulocytes % 0.6 %; Immature Granulocytes Absolute 0.08 #; Lymphocytes # 1.1 10*3/uL (1.4-4.0); Lymphocytes % 7.8 % (21.2-54.2); Mean Corpuscular HGB Conc 31.4 GM/DL (32-36); Mean Corpuscular Volume 98.7 FL (87-102); Mean Platelet Volume 9.6 FL (9.6-12.0); Monocytes % 5.3 % (1.7-12.7); Neutrophils % 84.1 % (38.7-73.9); Platelet Count 272 T/CUMM (130-400); Red Blood Count 3.13 MC/CUMM (3.8-5.5); Red Cell Distribution Width 14.8 % (9.3-17.3)
[2020-08-01 08:06] LABS: Albumin 1.9 G/DL (3.4-5.0); Bilirubin,Total 0.4 MG/DL (0.2-1.0); Calcium 8.3 MG/DL (8.5-10.1); Osmolality,Calculated 285.1 MOS/KG (273-304); Total Protein 7.3 G/DL (6.4-8.3)
[2020-08-01] MEDS: ASCORBIC ACID 500 MG TABLET PO SCH (09:16)
[2020-08-01] MEDS: ASPIRIN EC 81 MG TABLET PO SCH (09:17)
[2020-08-01] MEDS: INSULIN REGULAR 100 UNIT/ML SUBCUT SCH ×2 (09:26→13:58)
[2020-08-01 12:31] VITALS: BP 148/77
[2020-08-01] MEDS: LACTATED RINGERS 1,000 ML IV SCH (12:56)
== END 2020-08-01 15:20 | disposition home or self-care (01) | DRG 417 ==
LOC: N.ED 21:15 → N.EDINP 07-28 02:27 → N.3E 07-28 04:11
PROVIDERS: ADMIT Hospitalist; ATTEND Hospitalist
PROC: LAPCHOL (2020-07-30 11:30)

== ENCOUNTER 2020-11-01 13:45 | Inpatient (IN) ==
[2020-11-01] MEDS ORDERED: SODIUM CHLORIDE 0.9% 1,000 ML IV STA (14:55)
[2020-11-01 14:59] LABS: Bilirubin,Urine Negative (Negative); Blood, Urine Large mg/dL (Negative); Glucose,Urine (UA) Negative (Negative); Ketones,Urine Negative (Negative); Nitrite,Urine Negative (Negative); Protein,Urine 100 MG/DL; Urine Appearance CLOUDY (Clear); Urine Color Amber (Yellow); Urine Specific Gravity 1.011 (1.001-1.035); Urine Urobilinogen < 2.0 EU/DL (0.2-1.0); WBC,Urine 2384 /HPF (0-6)
[2020-11-01 15:18] LABS: Basophils # 0.1 10*3/uL (0.0-0.2); Basophils % 0.5 % (0.0-0.8); Eosinophils # 0.4 10*3/uL (0.0-0.87); Eosinophils % 3.1 % (0.00-10.9); Hematocrit 32.7 VOL% (42.0-52.0); Hemoglobin 10.1 GM/DL (14.0-18.0); Immature Granulocytes % 0.5 %; Immature Granulocytes Absolute 0.06 #; Lymphocytes # 1.3 10*3/uL (1.4-4.0); Lymphocytes % 10.8 % (21.2-54.2); Mean Corpuscular HGB Conc 30.9 GM/DL (32-36); Mean Corpuscular Volume 89.3 FL (87-102); Mean Platelet Volume 10.2 FL (9.6-12.0); Monocytes % 6.8 % (1.7-12.7); Neutrophils % 78.3 % (38.7-73.9); Platelet Count 382 T/CUMM (130-400); Red Blood Count 3.66 MC/CUMM (3.8-5.5); Red Cell Distribution Width 14.4 % (9.3-17.3); White Blood Count 11.6 T/CUMM (4-12)
[2020-11-01 15:41] LABS: Albumin 2.4 G/DL (3.4-5.0); Bilirubin,Total 0.4 MG/DL (0.2-1.0); Calcium 8.8 MG/DL (8.5-10.1); Osmolality,Calculated 280.7 MOS/KG (273-304); Potassium 3.9 MMOL/L (3.5-5.1); Total Protein 7.8 G/DL (6.4-8.3)
[2020-11-01] MEDS ORDERED: DEXTROSE 50% 25 GM/50 ML VIAL IV PRN (16:53)
[2020-11-01] MEDS ORDERED: ALUMINUM/MAGNES/SIMETH MAX STR 30 ML UDCUP PO PRN (16:53)
[2020-11-01] MEDS ORDERED: GLUCAGON 1 MG VIAL IM PRN (16:53)
[2020-11-01] MEDS ORDERED: ONDANSETRON 4 MG/2 ML VIAL IV PRN (16:53)
[2020-11-01] MEDS ORDERED: MORPHINE 4 MG/1 ML VIAL IV PRN (16:53)
[2020-11-01] MEDS: cefTRIAXone 2,000 MG in SYRINGE 1 EACH IV SCH (18:21)
[2020-11-01] MEDS: SODIUM CHLORIDE 0.9% 1,000 ML IV SCH (18:59)
[2020-11-01] MEDS: ENOXAPARIN 30 MG/0.3 ML SYRINGE SUBCUT SCH (20:02)
[2020-11-01] MEDS: INSULIN REGULAR 100 UNIT/ML SUBCUT SCH (21:10)
[2020-11-02 05:44] LABS: Basophils # 0.1 10*3/uL (0.0-0.2); Basophils % 0.5 % (0.0-0.8); Eosinophils # 0.3 10*3/uL (0.0-0.87); Eosinophils % 3.4 % (0.00-10.9); Hematocrit 30.6 VOL% (42.0-52.0); Hemoglobin 9.6 GM/DL (14.0-18.0); Immature Granulocytes % 0.4 %; Immature Granulocytes Absolute 0.04 #; Lymphocytes # 1.6 10*3/uL (1.4-4.0); Lymphocytes % 17.1 % (21.2-54.2); Mean Corpuscular HGB Conc 31.4 GM/DL (32-36); Mean Corpuscular Volume 87.9 FL (87-102); Mean Platelet Volume 10.3 FL (9.6-12.0); Monocytes % 8.4 % (1.7-12.7); Neutrophils % 70.2 % (38.7-73.9); Platelet Count 358 T/CUMM (130-400); Red Blood Count 3.48 MC/CUMM (3.8-5.5); Red Cell Distribution Width 14.5 % (9.3-17.3); White Blood Count 9.2 T/CUMM (4-12)
[2020-11-02 05:55] LABS: Calcium 8.8 MG/DL (8.5-10.1); Osmolality,Calculated 277.5 MOS/KG (273-304); Potassium 3.3 MMOL/L (3.5-5.1)
[2020-11-02] MEDS: SODIUM CHLORIDE 0.9% 1,000 ML IV SCH ×2 (06:04→11:40)
[2020-11-02] MEDS ORDERED: cefTRIAXone 1,000 MG in SYRINGE 1 EACH IV ONE (07:42)
[2020-11-02] MEDS: INSULIN REGULAR 100 UNIT/ML SUBCUT SCH ×4 (08:23→21:52)
[2020-11-02] MEDS: ASPIRIN EC 81 MG TABLET PO SCH (11:35)
[2020-11-02] MEDS: cefTRIAXone 2,000 MG in SYRINGE 1 EACH IV SCH (17:50)
[2020-11-02] MEDS: ENOXAPARIN 30 MG/0.3 ML SYRINGE SUBCUT SCH (17:52)
[2020-11-03] MEDS: SODIUM CHLORIDE 0.9% 1,000 ML IV SCH ×3 (01:03→22:00)
[2020-11-03 05:31] LABS: Basophils # 0.1 10*3/uL (0.0-0.2); Basophils % 0.6 % (0.0-0.8); Eosinophils # 0.4 10*3/uL (0.0-0.87); Eosinophils % 3.3 % (0.00-10.9); Hematocrit 33.1 VOL% (42.0-52.0); Hemoglobin 10.2 GM/DL (14.0-18.0); Immature Granulocytes % 0.6 %; Immature Granulocytes Absolute 0.07 #; Lymphocytes # 1.7 10*3/uL (1.4-4.0); Lymphocytes % 15.2 % (21.2-54.2); Mean Corpuscular HGB Conc 30.8 GM/DL (32-36); Mean Corpuscular Volume 89.9 FL (87-102); Mean Platelet Volume 10.1 FL (9.6-12.0); Monocytes % 8.7 % (1.7-12.7); Neutrophils % 71.6 % (38.7-73.9); Platelet Count 418 T/CUMM (130-400); Red Blood Count 3.68 MC/CUMM (3.8-5.5); Red Cell Distribution Width 14.6 % (9.3-17.3); White Blood Count 11.2 T/CUMM (4-12)
[2020-11-03 05:39] LABS: Calcium 9.1 MG/DL (8.5-10.1); Osmolality,Calculated 280.4 MOS/KG (273-304); Potassium 3.7 MMOL/L (3.5-5.1)
[2020-11-03] MEDS: INSULIN REGULAR 100 UNIT/ML SUBCUT SCH ×4 (08:07→21:29)
[2020-11-03] MEDS: ASPIRIN EC 81 MG TABLET PO SCH (09:07)
[2020-11-03] MEDS: FLUCONAZOLE 200 MG TABLET PO SCH (12:21)
[2020-11-03] MEDS ORDERED: ASPIRIN EC 81 MG TABLET PO SCH (15:00)
[2020-11-03] MEDS: cefTRIAXone 2,000 MG in SYRINGE 1 EACH IV SCH (16:43)
[2020-11-03] MEDS: ENOXAPARIN 30 MG/0.3 ML SYRINGE SUBCUT SCH (16:48)
[2020-11-03] MEDS: GLIMEPIRIDE 2 MG TABLET PO SCH (21:26)
[2020-11-03] MEDS: GABAPENTIN 100 MG CAPSULE PO SCH (21:27)
[2020-11-03] MEDS: busPIRone 5 MG TABLET PO SCH (21:27)
[2020-11-03] MEDS: MEMANTINE 5 MG TABLET PO SCH (21:27)
[2020-11-03] MEDS: PARoxetine 20 MG TABLET PO SCH (21:27)
[2020-11-04] MEDS: SODIUM CHLORIDE 0.9% 1,000 ML IV SCH ×3 (03:38→21:41)
[2020-11-04 06:02] LABS: Basophils # 0.1 10*3/uL (0.0-0.2); Basophils % 0.5 % (0.0-0.8); Eosinophils # 0.5 10*3/uL (0.0-0.87); Eosinophils % 4.5 % (0.00-10.9); Hematocrit 33.7 VOL% (42.0-52.0); Hemoglobin 10.8 GM/DL (14.0-18.0); Immature Granulocytes % 0.5 %; Immature Granulocytes Absolute 0.05 #; Lymphocytes # 1.8 10*3/uL (1.4-4.0); Lymphocytes % 17.2 % (21.2-54.2); Mean Corpuscular Volume 88.2 FL (87-102); Mean Platelet Volume 9.6 FL (9.6-12.0); Monocytes % 6.7 % (1.7-12.7); Neutrophils % 70.6 % (38.7-73.9); Platelet Count 410 T/CUMM (130-400); Red Blood Count 3.82 MC/CUMM (3.8-5.5); Red Cell Distribution Width 14.6 % (9.3-17.3); White Blood Count 10.7 T/CUMM (4-12)
[2020-11-04 06:35] LABS: Calcium 9.3 MG/DL (8.5-10.1); Osmolality,Calculated 280.4 MOS/KG (273-304); Potassium 3.6 MMOL/L (3.5-5.1)
[2020-11-04] MEDS: MEMANTINE 5 MG TABLET PO SCH ×2 (08:58→21:16)
[2020-11-04] MEDS: SIMVASTATIN 10 MG TABLET PO SCH (08:58)
[2020-11-04] MEDS: FLUCONAZOLE 200 MG TABLET PO SCH (08:59)
[2020-11-04] MEDS: busPIRone 5 MG TABLET PO SCH ×2 (08:59→21:16)
[2020-11-04] MEDS: GLIMEPIRIDE 2 MG TABLET PO SCH ×2 (09:00→21:16)
[2020-11-04] MEDS: LEVOTHYROXINE 175 MCG TABLET PO SCH (09:00)
[2020-11-04] MEDS: ASPIRIN EC 81 MG TABLET PO SCH (09:00)
[2020-11-04] MEDS: INSULIN REGULAR 100 UNIT/ML SUBCUT SCH ×4 (12:11→21:20)
[2020-11-04] MEDS: cefTRIAXone 2,000 MG in SYRINGE 1 EACH IV SCH (16:55)
[2020-11-04] MEDS: ENOXAPARIN 30 MG/0.3 ML SYRINGE SUBCUT SCH (16:55)
[2020-11-04] MEDS: GABAPENTIN 100 MG CAPSULE PO SCH (21:16)
[2020-11-04] MEDS: PARoxetine 20 MG TABLET PO SCH (21:16)
[2020-11-05] MEDS: SODIUM CHLORIDE 0.9% 1,000 ML IV SCH ×2 (02:03→11:15)
[2020-11-05 06:18] LABS: Osmolality,Calculated 282.3 MOS/KG (273-304); Potassium 3.7 MMOL/L (3.5-5.1)
[2020-11-05] MEDS: GLIMEPIRIDE 2 MG TABLET PO SCH ×2 (08:17→20:59)
[2020-11-05] MEDS: ASPIRIN EC 81 MG TABLET PO SCH (08:17)
[2020-11-05] MEDS: MEMANTINE 5 MG TABLET PO SCH ×2 (08:17→21:00)
[2020-11-05] MEDS: LEVOTHYROXINE 175 MCG TABLET PO SCH (08:18)
[2020-11-05] MEDS: busPIRone 5 MG TABLET PO SCH ×2 (08:18→21:03)
[2020-11-05] MEDS: SIMVASTATIN 10 MG TABLET PO SCH (08:18)
[2020-11-05] MEDS: FLUCONAZOLE 200 MG TABLET PO SCH (08:18)
[2020-11-05] MEDS: INSULIN REGULAR 100 UNIT/ML SUBCUT SCH ×4 (08:39→21:00)
[2020-11-05] MEDS: ENOXAPARIN 30 MG/0.3 ML SYRINGE SUBCUT SCH (17:13)
[2020-11-05] MEDS: cefTRIAXone 2,000 MG in SYRINGE 1 EACH IV SCH (17:14)
[2020-11-05] MEDS: GABAPENTIN 100 MG CAPSULE PO SCH (21:00)
[2020-11-05] MEDS: PARoxetine 20 MG TABLET PO SCH (21:08)
[2020-11-06] MEDS: SODIUM CHLORIDE 0.9% 1,000 ML IV SCH ×3 (00:40→21:57)
[2020-11-06] MEDS ORDERED: cefTRIAXone 1,000 MG VIAL IM ONE (07:00)
[2020-11-06] MEDS: INSULIN REGULAR 100 UNIT/ML SUBCUT SCH ×4 (09:45→21:51)
[2020-11-06] MEDS ORDERED: cefTRIAXone 1,000 MG in SYRINGE 1 EACH IV ONE (09:46)
[2020-11-06] MEDS ORDERED: fentaNYL 100 MCG/2 ML VIAL ONE (11:15)
[2020-11-06] MEDS ORDERED: PHENYLEPHRINE 10 MG/1 ML VIAL IV ONE (11:34)
[2020-11-06] MEDS ORDERED: ROCURONIUM 50 MG/5 ML VIAL IV ONE (11:58)
[2020-11-06] MEDS ORDERED: SUCCINYLCHOLINE 200 MG/10 ML VIAL ONE (11:58)
[2020-11-06] MEDS ORDERED: ONDANSETRON 4 MG/2 ML VIAL ONE (11:58)
[2020-11-06] MEDS ORDERED: ETOMIDATE 40 MG/20 ML VIAL IV ONE (11:58)
[2020-11-06] MEDS ORDERED: LIDOCAINE 2% 5 ML VIAL ONE (11:59)
[2020-11-06] MEDS ORDERED: ESMOLOL 100 MG/10 ML VIAL IV ONE (11:59)
[2020-11-06] MEDS ORDERED: SODIUM CHLORIDE 0.9% 1,000 ML IV ONE (12:06)
[2020-11-06] MEDS ORDERED: SEVOFLURANE 1 UNIT/15 MINUTE INH ONE (12:07)
[2020-11-06] MEDS ORDERED: NEOSTIGMINE 10 MG/10 ML VIAL ONE ×3 (12:28)
[2020-11-06] MEDS ORDERED: GLYCOPYRROLATE 0.4 MG/2 ML VIAL ONE (12:28)
[2020-11-06] MEDS ORDERED: diphenhydrAMINE 50 MG/1 ML VIAL IV PRN (13:14)
[2020-11-06] MEDS ORDERED: MEPERIDINE 25 MG/1 ML VIAL IV PRN (13:14)
[2020-11-06] MEDS ORDERED: ONDANSETRON 4 MG/2 ML VIAL IV PRN (13:14)
[2020-11-06 14:53] LABS: Basophils # 0.1 10*3/uL (0.0-0.2); Basophils % 0.6 % (0.0-0.8); Eosinophils # 0.2 10*3/uL (0.0-0.87); Eosinophils % 2.5 % (0.00-10.9); Hematocrit 31.5 VOL% (42.0-52.0); Hemoglobin 9.5 GM/DL (14.0-18.0); Immature Granulocytes % 0.7 %; Immature Granulocytes Absolute 0.06 #; Lymphocytes # 1.7 10*3/uL (1.4-4.0); Lymphocytes % 20.3 % (21.2-54.2); Mean Corpuscular HGB Conc 30.2 GM/DL (32-36); Mean Corpuscular Volume 91.3 FL (87-102); Mean Platelet Volume 9.5 FL (9.6-12.0); Monocytes % 6.5 % (1.7-12.7); Neutrophils % 69.4 % (38.7-73.9); Platelet Count 495 T/CUMM (130-400); Red Blood Count 3.45 MC/CUMM (3.8-5.5); Red Cell Distribution Width 14.7 % (9.3-17.3); White Blood Count 8.5 T/CUMM (4-12)
[2020-11-06 15:13] LABS: Calcium 8.3 MG/DL (8.5-10.1); Potassium 3.9 MMOL/L (3.5-5.1)
[2020-11-06] MEDS: FLUCONAZOLE 200 MG TABLET PO SCH (16:10)
[2020-11-06] MEDS: LEVOTHYROXINE 175 MCG TABLET PO SCH (16:10)
[2020-11-06] MEDS: DOCUSATE SODIUM 100 MG CAPSULE PO PRN (16:10)
[2020-11-06] MEDS: busPIRone 5 MG TABLET PO SCH ×2 (16:12→21:50)
[2020-11-06] MEDS: ASPIRIN EC 81 MG TABLET PO SCH (16:12)
[2020-11-06] MEDS: MEMANTINE 5 MG TABLET PO SCH ×2 (16:13→21:51)
[2020-11-06] MEDS: GLIMEPIRIDE 2 MG TABLET PO SCH ×2 (16:19→21:50)
[2020-11-06] MEDS: SIMVASTATIN 10 MG TABLET PO SCH (16:20)
[2020-11-06] MEDS: ENOXAPARIN 30 MG/0.3 ML SYRINGE SUBCUT SCH (17:27)
[2020-11-06] MEDS: cefTRIAXone 2,000 MG in SYRINGE 1 EACH IV SCH (18:00)
[2020-11-06] MEDS ORDERED: MEPERIDINE 50 MG/1 ML VIAL IV PRN (20:30)
[2020-11-06] MEDS: ASCORBIC ACID 500 MG TABLET PO SCH (21:49)
[2020-11-06] MEDS: METOPROLOL TARTRATE 25 MG TABLET PO SCH (21:50)
[2020-11-06] MEDS: PARoxetine 20 MG TABLET PO SCH (21:50)
[2020-11-06] MEDS: GABAPENTIN 100 MG CAPSULE PO SCH (21:53)
[2020-11-07 06:11] LABS: Basophils # 0.1 10*3/uL (0.0-0.2); Basophils % 0.5 % (0.0-0.8); Eosinophils # 0.2 10*3/uL (0.0-0.87); Eosinophils % 1.3 % (0.00-10.9); Hematocrit 30.1 VOL% (42.0-52.0); Hemoglobin 9.1 GM/DL (14.0-18.0); Immature Granulocytes % 0.4 %; Immature Granulocytes Absolute 0.05 #; Lymphocytes # 1.7 10*3/uL (1.4-4.0); Lymphocytes % 13.7 % (21.2-54.2); Mean Corpuscular HGB Conc 30.2 GM/DL (32-36); Mean Corpuscular Volume 91.2 FL (87-102); Mean Platelet Volume 9.9 FL (9.6-12.0); Monocytes % 5.5 % (1.7-12.7); Neutrophils % 78.6 % (38.7-73.9); Platelet Count 476 T/CUMM (130-400); Red Cell Distribution Width 14.8 % (9.3-17.3); White Blood Count 12.6 T/CUMM (4-12)
[2020-11-07] MEDS: SODIUM CHLORIDE 0.9% 1,000 ML IV SCH ×2 (06:13→10:56)
[2020-11-07 06:28] LABS: Calcium 8.1 MG/DL (8.5-10.1); Osmolality,Calculated 281.3 MOS/KG (273-304); Potassium 3.9 MMOL/L (3.5-5.1)
[2020-11-07] MEDS: INSULIN REGULAR 100 UNIT/ML SUBCUT SCH ×2 (08:04→12:54)
[2020-11-07] MEDS: ASPIRIN EC 81 MG TABLET PO SCH (08:51)
[2020-11-07] MEDS: ASCORBIC ACID 500 MG TABLET PO SCH (08:51)
[2020-11-07] MEDS: LEVOTHYROXINE 175 MCG TABLET PO SCH (08:52)
[2020-11-07] MEDS: METOPROLOL TARTRATE 25 MG TABLET PO SCH (08:52)
[2020-11-07] MEDS: MEMANTINE 5 MG TABLET PO SCH (08:52)
[2020-11-07] MEDS: FLUCONAZOLE 200 MG TABLET PO SCH (08:52)
[2020-11-07] MEDS: DOCUSATE SODIUM 100 MG CAPSULE PO PRN (08:53)
[2020-11-07] MEDS: SIMVASTATIN 10 MG TABLET PO SCH (08:53)
[2020-11-07] MEDS: busPIRone 5 MG TABLET PO SCH (08:53)
[2020-11-07] MEDS: GLIMEPIRIDE 2 MG TABLET PO SCH (08:54)
[2020-11-07 12:02] VITALS: BP 108/66
[2020-11-07] MEDS ORDERED: ENOXAPARIN 40 MG/0.4 ML SYRINGE SUBCUT SCH (17:00)
[2020-11-13 19:06] LABS: Stone Analysis Interpretation SEE COMMENTS; Stone Source LEFT DISTAL URETER
== END 2020-11-07 15:04 | disposition home health service (06) | DRG 660 ==
LOC: N.ED 13:45 → N.EDINP 16:53 → SUATTDRO 16:53 → N.EDINP 20:32 → N.TELES 23:39
PROVIDERS: ADMIT Emergency Medicine; ATTEND Internal Medicine

== ENCOUNTER 2022-05-15 12:35 | Inpatient (IN) ==
[2022-05-15 14:02] LABS: Basophils # 0.1 10*3/uL (0.0-0.2); Basophils % 0.5 % (0.0-0.8); Eosinophils # 0.3 10*3/uL (0.0-0.87); Eosinophils % 2.2 % (0.00-10.9); Hematocrit 38.7 VOL% (42.0-52.0); Hemoglobin 12.3 GM/DL (14.0-18.0); Immature Granulocytes % 0.6 %; Immature Granulocytes Absolute 0.07 #; Lymphocytes # 1.6 10*3/uL (1.4-4.0); Lymphocytes % 12.9 % (21.2-54.2); Mean Corpuscular HGB Conc 31.8 GM/DL (32-36); Mean Platelet Volume 10.1 FL (9.6-12.0); Monocytes # 0.8 10*3/uL (0.11-0.8); Monocytes % 6.8 % (1.7-12.7); Platelet Count 384 T/CUMM (130-400); Red Blood Count 4.35 MC/CUMM (3.8-5.5); Red Cell Distribution Width 14.1 % (9.3-17.3); White Blood Count 12.4 T/CUMM (4-12)
[2022-05-15 14:16] LABS: Calcium 10.1 MG/DL (8.5-10.1); Potassium 4.4 MMOL/L (3.5-5.1)
[2022-05-15] MEDS ORDERED: SODIUM CHLORIDE 0.9% 1,000 ML IV STA (14:22)
[2022-05-15 14:48] LABS: Bilirubin,Urine Negative (Negative); Blood, Urine Large mg/dL (Negative); Glucose,Urine (UA) Negative (Negative); Ketones,Urine Negative (Negative); Nitrite,Urine Negative (Negative); Protein,Urine 100 mg/dL (Negative); Urine Appearance Cloudy (Clear); Urine Color Yellow (Yellow); Urine Urobilinogen 0.2 eU/dL (<2.0)
[2022-05-15 14:52] LABS: RBC,Urine 452 /HPF (0-4)
[2022-05-15] MEDS ORDERED: KETOROLAC 30 MG/1 ML VIAL ONE (15:09)
[2022-05-15] MEDS ORDERED: KETOROLAC 30 MG/1 ML VIAL IV STA (15:13)
[2022-05-15] MEDS ORDERED: cefTRIAXone 1,000 MG in SODIUM CHLORIDE 0.9% 100 ML IV STA (15:42)
[2022-05-15] MEDS ORDERED: GENTAMICIN INJ 120 MG/100 ML PREMIX IV STA (15:42)
[2022-05-15] MEDS ORDERED: GLUCAGON 1 MG VIAL IM PRN (16:40)
[2022-05-15] MEDS ORDERED: hydrALAZINE 20 MG/1 ML VIAL IV PRN (16:40)
[2022-05-15] MEDS ORDERED: DEXTROSE 50% 25 GM/50 ML VIAL IV PRN (16:40)
[2022-05-15] MEDS ORDERED: ALBUTEROL 2.5 MG/3 ML NEB RESP TX PRN (16:40)
[2022-05-15] MEDS ORDERED: ALUMINUM/MAGNES/SIMETH MAX STR 30 ML UDCUP PO PRN (16:40)
[2022-05-15] MEDS ORDERED: ACETAMINOPHEN 325 MG TABLET PO PRN (16:40)
[2022-05-15] MEDS ORDERED: LACTULOSE 20 GM/30 ML UDCUP PO PRN (16:40)
[2022-05-15] MEDS ORDERED: SIMETHICONE CHEW 125 MG TABLET PO PRN (16:40)
[2022-05-15] MEDS ORDERED: ONDANSETRON 4 MG/2 ML VIAL IV PRN (16:40)
[2022-05-15] MEDS ORDERED: HYDROmorphone 1 MG/1 ML SYRINGE IV PRN (16:47)
[2022-05-15] MEDS ORDERED: ASPIRIN CHEW 81 MG TABLET PO PRN (16:48)
[2022-05-15] MEDS ORDERED: NITROGLYCERIN SL 0.4 MG TABLET SL PRN (16:48)
[2022-05-15] MEDS ORDERED: oxyCODONE/ACETAMINOPHEN 5-325 MG TABLET PO PRN (16:48)
[2022-05-15] MEDS ORDERED: DEXTROSE 10% 250 ML BAG IV PRN (17:04)
[2022-05-15] MEDS: ENOXAPARIN 40 MG/0.4 ML SYRINGE SUBCUT SCH (18:40)
[2022-05-15] MEDS: LACTATED RINGERS 1,000 ML IV SCH (20:00)
[2022-05-15 20:57] LABS: % Iron Saturation 11.7 % (18-50)
[2022-05-15] MEDS: busPIRone 5 MG TABLET PO SCH (21:13)
[2022-05-15] MEDS: DOCUSATE SODIUM 100 MG CAPSULE PO SCH (21:14)
[2022-05-15] MEDS: MEMANTINE 5 MG TABLET PO SCH (21:14)
[2022-05-15] MEDS: DULoxetine 30 MG CAPSULE PO SCH (21:14)
[2022-05-15] MEDS: INSULIN REGULAR 100 UNIT/ML SUBCUT SCH (21:14)
[2022-05-15] MEDS: SIMVASTATIN 10 MG TABLET PO SCH (21:14)
[2022-05-15 21:36] LABS: Folate 22.62 NG/ML (5.38-24.0)
[2022-05-16 02:29] LABS: Basophils # 0.1 10*3/uL (0.0-0.2); Basophils % 0.5 % (0.0-0.8); Eosinophils # 0.4 10*3/uL (0.0-0.87); Eosinophils % 3.5 % (0.00-10.9); Hematocrit 38.2 VOL% (42.0-52.0); Hemoglobin 11.7 GM/DL (14.0-18.0); Immature Granulocytes % 0.4 %; Immature Granulocytes Absolute 0.04 #; Lymphocytes # 1.7 10*3/uL (1.4-4.0); Lymphocytes % 15.5 % (21.2-54.2); Mean Corpuscular HGB Conc 30.6 GM/DL (32-36); Mean Corpuscular Volume 91.2 FL (87-102); Mean Platelet Volume 9.8 FL (9.6-12.0); Monocytes # 0.8 10*3/uL (0.11-0.8); Monocytes % 7.5 % (1.7-12.7); Neutrophils % 72.6 % (38.7-73.9); Platelet Count 351 T/CUMM (130-400); Red Blood Count 4.19 MC/CUMM (3.8-5.5); Red Cell Distribution Width 14.3 % (9.3-17.3); White Blood Count 10.8 T/CUMM (4-12)
[2022-05-16 02:56] LABS: Alanine Aminotransferase 17 U/L (16-61); Albumin 2.8 G/DL (3.4-5.0); Alkaline Phosphatase 91 U/L (45-117); Aspartate Amino Transferase 21 U/L (0-37); Bilirubin,Total < 0.39 MG/DL (0.20-1.00); Blood Urea Nitrogen 20 MG/DL (7-18); Calcium 9.1 MG/DL (8.5-10.1); Carbon Dioxide 27 MMOL/L (21-32); Chloride 108 MMOL/L (98-107); Cholesterol 122 MG/DL (50-200); Glucose 187 MG/DL (74-106); HDL Cholesterol 31 MG/DL (40-60); Osmolality,Calculated 284.5 MOS/KG (273-304); Potassium 4.5 MMOL/L (3.5-5.1); Risk Ratio 3.94; Sodium 139 MMOL/L (136-145); Total Protein 8.2 G/DL (6.4-8.2); Triglycerides 175 MG/DL (2-150)
[2022-05-16] MEDS: LEVOTHYROXINE 150 MCG TABLET PO SCH (06:06)
[2022-05-16] MEDS ORDERED: FLUCONAZOLE 200 MG TABLET PO ONE (07:37)
[2022-05-16] MEDS: POLYETHYLENE GLYCOL POWDER 17 GM PACK PO SCH (09:39)
[2022-05-16] MEDS: DULoxetine 30 MG CAPSULE PO SCH ×2 (09:40→21:14)
[2022-05-16] MEDS: busPIRone 5 MG TABLET PO SCH ×2 (09:40→21:14)
[2022-05-16] MEDS: MEMANTINE 5 MG TABLET PO SCH ×2 (09:41→21:14)
[2022-05-16] MEDS: DOCUSATE SODIUM 100 MG CAPSULE PO SCH ×2 (09:41→21:14)
[2022-05-16] MEDS: PANTOPRAZOLE 40 MG TABLET PO SCH (09:41)
[2022-05-16] MEDS: INSULIN REGULAR 100 UNIT/ML SUBCUT SCH ×4 (09:41→21:15)
[2022-05-16] MEDS: LACTATED RINGERS 1,000 ML IV SCH (09:45)
[2022-05-16] MEDS: ENOXAPARIN 40 MG/0.4 ML SYRINGE SUBCUT SCH (17:30)
[2022-05-16] MEDS: cefTRIAXone 1,000 MG in SODIUM CHLORIDE 0.9% 100 ML IV SCH (17:30)
[2022-05-16] MEDS: SIMVASTATIN 10 MG TABLET PO SCH (21:14)
[2022-05-17 05:14] LABS: Basophils % 0.4 % (0.0-0.8); Eosinophils # 0.4 10*3/uL (0.0-0.87); Eosinophils % 3.8 % (0.00-10.9); Hematocrit 38.4 VOL% (42.0-52.0); Immature Granulocytes % 0.5 %; Immature Granulocytes Absolute 0.06 #; Lymphocytes # 1.6 10*3/uL (1.4-4.0); Lymphocytes % 14.2 % (21.2-54.2); Mean Corpuscular HGB Conc 31.3 GM/DL (32-36); Mean Platelet Volume 10.2 FL (9.6-12.0); Monocytes # 0.9 10*3/uL (0.11-0.8); Monocytes % 7.7 % (1.7-12.7); Neutrophils % 73.4 % (38.7-73.9); Platelet Count 345 T/CUMM (130-400); Red Blood Count 4.22 MC/CUMM (3.8-5.5); Red Cell Distribution Width 14.2 % (9.3-17.3); White Blood Count 11.1 T/CUMM (4-12)
[2022-05-17] MEDS: LEVOTHYROXINE 150 MCG TABLET PO SCH (05:25)
[2022-05-17 05:32] LABS: Albumin 2.9 G/DL (3.4-5.0); Bilirubin,Total 0.4 MG/DL (0.20-1.00); Calcium 9.5 MG/DL (8.5-10.1); Osmolality,Calculated 279.7 MOS/KG (273-304); Potassium 4.3 MMOL/L (3.5-5.1); Total Protein 8.7 G/DL (6.4-8.2)
[2022-05-17] MEDS: PANTOPRAZOLE 40 MG TABLET PO SCH (09:34)
[2022-05-17] MEDS: MEMANTINE 5 MG TABLET PO SCH ×2 (09:34→20:44)
[2022-05-17] MEDS: POLYETHYLENE GLYCOL POWDER 17 GM PACK PO SCH (09:34)
[2022-05-17] MEDS: DULoxetine 30 MG CAPSULE PO SCH ×2 (09:34→20:46)
[2022-05-17] MEDS: DOCUSATE SODIUM 100 MG CAPSULE PO SCH ×2 (09:34→20:44)
[2022-05-17] MEDS: busPIRone 5 MG TABLET PO SCH ×2 (09:34→20:44)
[2022-05-17] MEDS: INSULIN REGULAR 100 UNIT/ML SUBCUT SCH ×4 (09:35→20:47)
[2022-05-17] MEDS ORDERED: LIDOCAINE 2% TOP JELLY 20 ML VIAL INTRAURETH ONE (11:45)
[2022-05-17] MEDS: cefTRIAXone 1,000 MG in SODIUM CHLORIDE 0.9% 100 ML IV SCH (17:17)
[2022-05-17] MEDS: ENOXAPARIN 40 MG/0.4 ML SYRINGE SUBCUT SCH (17:18)
[2022-05-17] MEDS: SIMVASTATIN 10 MG TABLET PO SCH (20:44)
[2022-05-18] MEDS: LEVOTHYROXINE 150 MCG TABLET PO SCH (05:31)
[2022-05-18 06:14] LABS: Basophils # 0.1 10*3/uL (0.0-0.2); Basophils % 0.5 % (0.0-0.8); Eosinophils # 0.4 10*3/uL (0.0-0.87); Eosinophils % 3.5 % (0.00-10.9); Immature Granulocytes % 0.3 %; Immature Granulocytes Absolute 0.04 #; Lymphocytes # 1.6 10*3/uL (1.4-4.0); Lymphocytes % 14.2 % (21.2-54.2); Mean Corpuscular HGB Conc 31.6 GM/DL (32-36); Mean Corpuscular Volume 89.6 FL (87-102); Mean Platelet Volume 10.2 FL (9.6-12.0); Monocytes # 0.8 10*3/uL (0.11-0.8); Monocytes % 7.1 % (1.7-12.7); Neutrophils % 74.4 % (38.7-73.9); Platelet Count 348 T/CUMM (130-400); Red Blood Count 4.24 MC/CUMM (3.8-5.5); Red Cell Distribution Width 14.1 % (9.3-17.3); White Blood Count 11.6 T/CUMM (4-12)
[2022-05-18 06:26] LABS: Alanine Aminotransferase 18 U/L (16-61); Albumin 2.7 G/DL (3.4-5.0); Alkaline Phosphatase 97 U/L (45-117); Aspartate Amino Transferase 24 U/L (0-37); Bilirubin,Total < 0.39 MG/DL (0.20-1.00); Blood Urea Nitrogen 16 MG/DL (7-18); Calcium 9.2 MG/DL (8.5-10.1); Carbon Dioxide 25 MMOL/L (21-32); Chloride 107 MMOL/L (98-107); Glucose 186 MG/DL (74-106); Osmolality,Calculated 282.5 MOS/KG (273-304); Potassium 4.7 MMOL/L (3.5-5.1); Sodium 139 MMOL/L (136-145); Total Protein 8.7 G/DL (6.4-8.2)
[2022-05-18] MEDS: PANTOPRAZOLE 40 MG TABLET PO SCH (08:56)
[2022-05-18] MEDS: DULoxetine 30 MG CAPSULE PO SCH (08:56)
[2022-05-18] MEDS: DOCUSATE SODIUM 100 MG CAPSULE PO SCH (08:56)
[2022-05-18] MEDS: INSULIN REGULAR 100 UNIT/ML SUBCUT SCH ×2 (08:56→12:11)
[2022-05-18] MEDS: MEMANTINE 5 MG TABLET PO SCH (08:56)
[2022-05-18] MEDS: busPIRone 5 MG TABLET PO SCH (08:56)
[2022-05-18] MEDS: POLYETHYLENE GLYCOL POWDER 17 GM PACK PO SCH (08:57)
[2022-05-18] MEDS ORDERED: FLUCONAZOLE 200 MG TABLET PO SCH (09:00)
[2022-05-18 12:24] VITALS: BP 131/71
== END 2022-05-18 14:10 | disposition home health service (06) | DRG 699 ==
LOC: N.ED 12:35 → N.EDINP 16:40 → N.3E 18:23
PROVIDERS: ADMIT Internal Medicine; ATTEND Internal Medicine